=== PATIENT | female | born 1945 | race Caucasian/White ===

== ENCOUNTER 2021-11-24 14:05 | Emergency (ER) | payer MEDICARE, SELFPAY ==
[2021-11-24] VITALS (10 sets, daily range): BP systolic 112–130; BP diastolic 42–50; PULSE 63–74; RESP 15–22; TEMP 38.2; O2SAT 94–100
--- NOTE | ~2021-11-24 | XR_ITS ---
EXAMINATION: XR chest 2V DATE: 11/24/2021 16:36 INDICATION: Fever TECHNIQUE: AP and lateral views of the chest are obtained. COMPARISON: None available FINDINGS: There is mild atelectasis of the lung bases. The heart size is normal for technique. There is no pleural effusion or pneumothorax. Median sternotomy wires and mediastinal surgical clips are se en, likely from prior coronary artery bypass grafting. A dual-lead cardiac pacemaker of the left ches t wall ends with leads in expected locations. There are partially imaged surgical changes of the lumb ar spine. Neurostimulator leads end in the central spinal canal of the midthoracic spine. IMPRESSION: 1. Mild atelectasis of the lung bases. Reviewed, dictated and finalized at location B.
[2021-11-24 15:15] LABS: Hematocrit 23.3 % (37.0-47.0); Hemoglobin 7.5 g/dL (12.0-15.0); Mean Corpuscular HGB Conc 32.2 g/dl (32-36); Mean Corpuscular Hemoglobin 33.8 pg (26-34); Mean Platelet Volume 8.8 fl (7.4-10.4); Platelet Count Result 351 k/mm3 (150-375); Red Blood Count 2.22 M/mm3 (4.2-5.4); Red Cell Distribution Width 14.9 % (11.5-14.5); White Blood Count 15.5 K/mm3 (4.5-10.0)
[2021-11-24] MEDS: SODIUM CHLORIDE 0.9% IV 500 ML 999 ML IV CONT ×2 (15:15→17:22)
[2021-11-24] MEDS: HYDROmorphone HCL INJ (*CRX) 1 MG/ML SYR 0.5 MG IV PUSH (15:16)
[2021-11-24 15:35] LABS: Alanine Aminotransferase 22 U/L (4-35); Alkaline Phosphatase 119 U/L (38-126); Anion Gap 2 mmol/L (8-16); Aspartate Amino Transferase 59 U/L (14-36); Blood Urea Nitrogen 20 mg/dL (7-17); Carbon Dioxide 27 mmol/L (22-30); Chloride 96 mmol/L (98-107); Estimated CRCL calculation 38 ml/min; Estimated Glomerular Filt Rate 54; Glucose 132 mg/dL (65-110); Potassium 4.3 mmol/L (3.4-5.0); Sodium 125 mmol/L (137-145)
--- NOTE | 2021-11-24 15:45 | ED.EXTPRO ---
HPI - Extremity Problem General Chief complaint: Extremity Problem,Nontraumatic Stated complaint: b/l LE pain, recent hip replacement Source: patient, family and RN notes reviewed Mode of arrival: ambulatory Limitations: no limitations History of Present Illness HPI Narrative: 76-year-old female presenting the emergency department for evaluation of intermittent lower extremity cramping. Patient had a hip replacement in [place] by Dr. Marie. Patient did have follow-up yesterday and had her bud removed. Patient was having some left lower extremity swelling and did have a ultrasound ruling out a DVT. Patient states today that she had onset of bilateral thigh cramping that was not improved with either flexion or extension of her lower extremities. Patient states that she also had some cramping of her upper extremities. Patient did have a low-grade fever on arrival of 100.7. Related Data Home Medications Medication Instructions Recorded Confirmed acetaminophen-codeine 1 tablet PO Q6H PRN 11/24/21 11/24/21 amiodarone 200 mg PO DAILY 11/24/21 11/24/21 apixaban [Eliquis] 5 mg PO BID 11/24/21 11/24/21 atorvastatin 40 mg PO HS 11/24/21 11/24/21 baclofen 10 mg PO QID 11/24/21 11/24/21 chlorpheniramine maleate 4 mg PO Q4H 11/24/21 11/24/21 [Chlortab-4] ezetimibe 10 mg PO DAILY 11/24/21 11/24/21 gabapentin 300 mg PO BID 11/24/21 11/24/21 insulin lispro [Humalog U-100 1 sliding scale dose SUBCUT 11/24/21 11/24/21 Insulin] USEASDIRECTD isosorbide mononitrate 30 mg PO DAILY 11/24/21 11/24/21 losartan 12.5 mg PO DAILY 11/24/21 11/24/21 metoprolol succinate 12.5 mg PO DAILY 11/24/21 11/24/21 pantoprazole 40 mg PO QAM 11/24/21 11/24/21 tramadol 50 mg PO Q6H PRN 11/24/21 11/24/21 Allergies Allergy/AdvReac Type Severity Reaction Status Date / Time hydrocodone Allergy Itching Verified 11/24/21 15:09 oxycodone Allergy Itching Verified 11/24/21 15:09 Review of Systems Review of Systems: CONSTITUTIONAL: Denies fever, chills, or sweats. EYES: Denies visual changes, redness, or discharge. ENT: Denies rhinorrhea, congestion, sore throat, or otalgia. CARDIOVASCULAR: Denies chest pain, palpitations, or edema. RESPIRATORY: Denies cough or dyspnea. GASTROINTESTINAL: Denies abdominal pain, nausea, vomiting, or diarrhea. GENITOURINARY: Denies dysuria or hematuria. SKIN: Denies rash or itching. MUSCULOSKELETAL: See HPI NEUROLOGIC: Denies headache, numbness, or weakness. All systems reviewed & are unremarkable except as noted in HPI and below Exam Narrative: APPEARANCE: Well appearing, no pain, no distress, well-nourished. HEAD: normocephalic, atraumatic. EYES: PERRLA/EOMI, conjunctivae clear. NOSE: Normal no drainage NECK: Supple. No adenopathy, no masses. RESPIRATORY: Airway patent, respirations nonlabored. Clear to auscultation bilaterally, no rales, rhonchi, wheezing. CARDIOVASCULAR: Regular rate and rhythm without murmurs rubs or gallops. ABDOMINAL: Soft, nontender, nondistended, normal bowel sounds MUSCULOSKELETAL: Moves all extremities. Left hip surgical incision is well-appearing. No erythema. Minimal tenderness to palpation. NEURO: Alert. Cranial nerves II through XII intact. Grossly intact SKIN: Warm, dry. Normal Color Course Course Emergency Course: Patient was offered admission for her low sodium but patient did decline. Patient states she does feel improved. Patient does have a leukocytosis but no sign of infection. Surgical incision is well-appearing and patient has no increased tenderness to palpation. Chest x-ray showed no acute cardiopulmonary normality. COVID was negative. Patient reports she has had issues with low calcium previously and had previously been prescribed calcium tablets. Patient is no longer taking these. Patient was encouraged to have close follow-up with her primary care physician to have her sodium and calcium rechecked. Patient was able to ambulate without issue. Vital Signs Vital signs:
[2021-11-24 15:59] LABS: SARS-CoV-2 RNA PCR Negative
[2021-11-24] MEDS: CALCIUM GLUC 1,000 MG/NS 50 ML 1,000 MG/50 ML BAG 100 MG IVPB (16:03)
[2021-11-24 16:05] LABS: Lymphocytes Absolute Manual 0.15 K/mm3 (1.1-4.5); Monocytes Absolute Manual 0.31 K/mm3 (0.1-0.90); Monocytes Percent Manual 2 % (3-9); Neutrophils Percent Manual 97 % (46-73); Total Cells Counted 100
[2021-11-24 16:06] LABS: Anisocytosis 1+ (NORMAL); Platelet Estimate Adequate (Adequate); Poikilocytosis 1+ (NORMAL); Schistocytes 1+ (NORMAL)
--- NOTE | 2021-11-24 16:51 | PC.NURSE ---
pT TO BATHROOM BY ERASTO MCCARTHY TO ATTEMPT URINE SAMPLE
[2021-11-24 17:07] LABS: Appearance Urine Clear (Clear); Bilirubin Urine Negative (Negative); Blood Urine Negative (Negative); Color Urine Yellow (Yellow); Glucose Urine UA Negative (Negative); Ketones Urine Negative (Negative); Leukocyte Esterase Ur Negative LEU/UL (Negative); Nitrate Urine Negative (Negative); Protein Urine Negative (Negative)
[2021-11-24 17:21] LABS: Add Urine Microscopic? NO
[2021-11-24 18:56] LABS: Anion Gap 3 mmol/L (8-16); Blood Urea Nitrogen 18 mg/dL (7-17); Calcium 7.8 mg/dL (8.4-10.2); Carbon Dioxide 26 mmol/L (22-30); Chloride 97 mmol/L (98-107); Estimated CRCL calculation 38 ml/min; Estimated Glomerular Filt Rate 54; Glucose 132 mg/dL (65-110); Potassium 4.1 mmol/L (3.4-5.0); Sodium 126 mmol/L (137-145)
== END 2021-11-24 19:51 | disposition home or self-care (01) ==
PROVIDERS: Emergency Provider Emergency Medicine
DX: R25.2 Cramp and spasm (principal); Z20.822 Contact with and (suspected) exposure to COVID-19; Z79.01 Long term (current) use of anticoagulants; Z79.4 Long term (current) use of insulin; Z96.642 Presence of left artificial hip joint
CPT/HCPCS: 36415; 71046; 80048; 80053; 81003; 83605; 85025; 96361; 96365; 96367; 96375; 99284; C9803; J0131; J0610; J1170; J7040; U0003; U0005

== ENCOUNTER 2021-11-26 08:49 | Inpatient (IN) | payer MEDICARE, SELFPAY ==
--- NOTE | ~2021-11-26 | CT_ITS ---
EXAMINATION: CT abdomen pelvis wo con DATE: 11/26/2021 10:56 INDICATION: Abdominal pain TECHNIQUE: Computed tomography (CT) of the abdomen and pelvis was performed without intravenous contr ast. The dose-length product (DLP) was 426.63 mGy-cm. Automated exposure control and iterative recons truction technique were employed. COMPARISON: None FINDINGS: Minimal dependent atelectasis is present in the lung bases. The heart size is normal. There is diffuse anasarca. The gallbladder is surgically absent. Within the limitations of noncontrast exa mination, the liver, spleen, pancreas, and adrenal glands are normal. Streak artifact from lumbar fus ion hardware limits evaluation of the kidneys although no parenchymal abnormality of the kidneys is s een. There is calcified atherosclerosis of the aorta and many of the other arteries. No pathologicall y enlarged abdominal or pelvic lymph nodes are identified. A moderate volume of colonic stool is pres ent. There is no free intraperitoneal gas or evidence of bowel obstruction. There are changes of left hip arthroplasty. There is a small volume of pelvic ascites. IMPRESSION: 1. Moderate volume of colonic stool. Reviewed, dictated and finalized at location A.
--- NOTE | ~2021-11-26 | US_ITS ---
EXAMINATION: US venous doppler LE DATE: 12/02/2021 14:22 INDICATION: LE edema. Recent left hip surgery. TECHNIQUE: Grayscale images without and with compression and Doppler images of the bilateral lower ex tremity veins were obtained. COMPARISON: None. FINDINGS: The right common femoral vein, profunda (deep) femoral vein, femoral vein, popliteal vein, peroneal v ein, posterior tibial veins, gastrocnemius vein and greater saphenous vein are patent. The left common femoral vein, profunda femoral vein, femoral vein, popliteal vein, peroneal vein, pos terior tibial veins, gastrocnemius vein and greater saphenous vein are patent. IMPRESSION: 1. Patent bilateral lower extremity veins. No evidence of deep venous thrombosis. Reviewed, dictated and finalized at location K. IMPRESSION: 1. Patent bilateral lower extremity veins. No evidence of deep venous thrombos is.
--- NOTE | ~2021-11-26 | US_ITS ---
EXAMINATION: US abdomen complete DATE: 12/03/2021 14:06 INDICATION: Abdominal fullness. TECHNIQUE: Multiple grayscale and Doppler ultrasound images of the abdomen were obtained. COMPARISON: CT abdomen and pelvis 11/26/2021. FINDINGS: Visualized portions of the pancreas are normal. The liver is normal with normal echogenicit y and echotexture. No surface nodularity. Normal hepatopetal flow in the main portal vein. Absent gal lbladder. The normal common bile duct measures 0.3 cm. The visualized portions of the aorta and infer ior vena cava are normal. The right kidney measures 8.6. The left kidney measures 9.7. The kidneys demonstrate normal parenchym al echogenicity. There is no hydronephrosis. The spleen is normal in appearance and measures 7 cm. IMPRESSION: 1. Status post cholecystectomy, otherwise normal abdominal ultrasound findings. Reviewed, dictated and finalized at location K.
[2021-11-26 08:55] VITALS: BP 129/42; PULSE 70; RESP 18; TEMP 36.8; O2SAT 98
--- NOTE | 2021-11-26 09:13 | ED.NAVMDI ---
HPI - Nausea/Vomiting/Diarrhea General Chief complaint: Nausea/Vomiting/Diarrhea Stated complaint: nausea diarrhea, repeat visit Time Seen by Provider: 11/26/21 09:01 Source: patient Mode of arrival: ambulatory Limitations: no limitations History of Present Illness HPI Narrative: 76 year old female presents today with complaints of diarrhea, n, v for 2 days. Patient seen here 11/24/2021 for muscle cramps. On that visit it was noted she had a fever and low sodium. Betty was offered admission but declined at that time due to her feeling better. Patient states she went home that night and that is when the diarrhea started. She also endorses lower abdominal pain/cramping. Patient with recent hip surgery as previously noted. Per family she was on abx after her procedure. He thinks amoxicillin but is unsure. Related Data Home Medications Medication Instructions Recorded Confirmed acetaminophen-codeine 1 tablet PO Q6H PRN 11/24/21 11/24/21 amiodarone 200 mg PO DAILY 11/24/21 11/24/21 apixaban [Eliquis] 5 mg PO BID 11/24/21 11/24/21 atorvastatin 40 mg PO HS 11/24/21 11/24/21 baclofen 10 mg PO QID 11/24/21 11/24/21 chlorpheniramine maleate 4 mg PO Q4H 11/24/21 11/24/21 [Chlortab-4] ezetimibe 10 mg PO DAILY 11/24/21 11/24/21 gabapentin 300 mg PO BID 11/24/21 11/24/21 insulin lispro [Humalog U-100 1 sliding scale dose SUBCUT 11/24/21 11/24/21 Insulin] USEASDIRECTD isosorbide mononitrate 30 mg PO DAILY 11/24/21 11/24/21 losartan 12.5 mg PO DAILY 11/24/21 11/24/21 metoprolol succinate 12.5 mg PO DAILY 11/24/21 11/24/21 pantoprazole 40 mg PO QAM 11/24/21 11/24/21 tramadol 50 mg PO Q6H PRN 11/24/21 11/24/21 Allergies Allergy/AdvReac Type Severity Reaction Status Date / Time hydrocodone Allergy Itching Verified 11/26/21 09:05 oxycodone Allergy Itching Verified 11/26/21 09:05 Review of Systems Review of Systems: CONSTITUTIONAL: Denies fever, chills, or sweats. EYES: Denies visual changes, redness, or discharge. ENT: Denies rhinorrhea, congestion, sore throat, or otalgia. CARDIOVASCULAR: Denies chest pain, palpitations, or edema. RESPIRATORY: Denies cough or dyspnea. GASTROINTESTINAL: Positive abdominal pain, nausea, vomiting, and diarrhea. GENITOURINARY: Denies dysuria or hematuria. SKIN: Denies rash or itching. MUSCULOSKELETAL: Denies back pain, joint pain, or myalgia. NEUROLOGIC: Denies headache, numbness, dizziness, or weakness. PSYCHIATRIC: Denies anxiety or depression. [facility] Past Medical History Medical History (Updated 11/26/21 @ 14:24 by Ivory Priest APRN) Atrial fibrillation Diabetes mellitus Dyslipidemia Hypertension Surgical History Surgical History History of total left hip replacement Social History Social History Smoking status: Never smoker Exam Narrative: GENERAL: Ill-appearing and in no acute distress. HEAD: Normocephalic, atraumatic. EYES: PERRLA and EOMI. ENT: Nares clear, no rhinorrhea or epistaxis. Mucous membranes moist. Oropharynx without tonsillar hypertrophy exudate or other lesions. NECK: Supple. No adenopathy or masses. No carotid bruits or JVD CHEST: Clear to auscultation. No respiratory distress. No wheezes rales or rhonchi HEART: Regular rate and rhythm. No murmur heard. Normal peripheral pulses. ABDOMEN: Soft, tender, nondistended, normal active bowel sounds. EXTREMITIES: Normal range of motion. No edema. SKIN: Warm, dry, no rash. NEURO: No focal deficits. Alert and oriented x3. PSYCH: Normal mood and affect. Course Reevaluation(s) Reevaluation #1: Patient refused scan with IV . Ct changed to plain. She is with continued nausea despite medication and IVF. Sodium 120, WBC 14.7, hemoglobin 7.4, CT shows moderate amount of stool but no obstruction. Case discussed with hospitalist patient to be admitted for further management. Just after admission order
[2021-11-26 09:27] LABS: Basophils Percent Auto 0.3 % (0.2-1.2); Eosinophils Percent Auto 0.1 % (0-4.4); Hematocrit 23.1 % (37.0-47.0); Hemoglobin 7.4 g/dL (12.0-15.0); Immature Granulocyte Absolute 0.17 K/mm3 (0.00-0.031); Immature Granulocyte Percent A 1.2 % (0-0.5); Lymphocytes Absolute Auto 0.61 K/mm3 (0.9-3.2); Lymphocytes Percent Auto 4.2 % (18.3-44.2); Mean Corpuscular Hemoglobin 33.6 pg (26-34); Mean Platelet Volume 9.3 fl (7.4-10.4); Monocytes Absolute Auto 1.1 K/mm3 (0.1-0.6); Monocytes Percent Auto 7.3 % (2.6-8.5); Neutrophils Absolute Auto 12.8 K/mm3 (1.3-6.7); Neutrophils Percent Auto 86.9 % (45.5-73.1); Platelet Count Result 345 k/mm3 (150-375); Red Cell Distribution Width 14.6 % (11.5-14.5); White Blood Count 14.7 K/mm3 (4.5-10.0)
[2021-11-26] MEDS: SODIUM CHLORIDE 0.9% IV 1,000 ML 999 ML IV CONT (09:27)
[2021-11-26] MEDS: METOCLOPRAMIDE HCL INJ 10 MG/2 ML VIAL IV PUSH (09:28)
[2021-11-26 09:46] LABS: Alanine Aminotransferase 20 U/L (6-35); Albumin Level 2.8 g/dL (3.5-5.1); Alkaline Phosphatase 112 U/L (38-126); Anion Gap 6 mmol/L (8-16); Aspartate Amino Transferase 38 U/L (14-36); Bilirubin,Total 1.1 mg/dL (0.2-1.3); Blood Urea Nitrogen 28 mg/dL (7-17); Calcium 7.6 mg/dL (8.4-10.2); Carbon Dioxide 22 mmol/L (22-30); Chloride 92 mmol/L (98-107); Crenated RBC 1+ (NORMAL); Estimated CRCL calculation 37 ml/min; Estimated Glomerular Filt Rate 54; Glucose 292 mg/dL (65-110); Platelet Estimate Adequate (Adequate); Potassium 4.3 mmol/L (3.4-5.0); Sodium 120 mmol/L (137-145)
[2021-11-26 11:53] LABS: Toxigenic C. Diff POSITIVE (NEGATIVE)
[2021-11-26] MEDS: ONDANSETRON INJ 4 MG/2 ML VIAL IV PUSH ×2 (12:05→21:46)
[2021-11-26 12:10] VITALS: BP 142/56; PULSE 72; RESP 18; O2SAT 100
[2021-11-26 12:46] VITALS: BP 147/62; PULSE 87; RESP 16; O2SAT 100
--- NOTE | 2021-11-26 13:11 | PM.CNNEP ---
Assessment and Plan Assessment and plan (1) Hyponatremia: Code(s): E87.1 - Hypo-osmolality and hyponatremia Status: Acute Assessment and Plan: presumably acute suspect due to volume depletion given GI symptoms (nausea/vomiting/diarrhea) however, issues with pain, use of narcotics, and use of PPI may be playing a role check TSH, cortisol, SPEP, UPEP, and serum/urine osmolality check urine electrolytes trial of IVFs serial sodium levels goal rate of change in sodium is 4 - 6mmol/L in 24hr period of time (and not exceed 8mmol/L) (2) Clostridium difficile infection: Code(s): A49.8 - Other bacterial infections of unspecified site Status: Acute Assessment and Plan: as noted by testing in ER to start oral vancomycin consider adding florastor (3) Hypertension: Code(s): I10 - Essential (primary) hypertension Status: Chronic Assessment and Plan: reasonable control at this time follow trend of hemodynamics (4) Diabetes mellitus: Code(s): E11.9 - Type 2 diabetes mellitus without complications Status: Acute Assessment and Plan: follow accuchecks glycemic control Will continue to follow. History of Present Illness Reason for Consult Consult date: 11/26/21 Reason for consult: hyponatremia Chief Complaint Chief complaint: hyponatremia History of Present Illness Narrative: The patient is a 76-year-old female with a past medical history as outlined below who presented to [facility] Emergency room with complaints of nausea, vomiting, and diarrhea. The patient was in her usual state of health until about Saturday when she started having the GI symptoms above. She was actually seen at [facility] emergency room on that day where routine blood test demonstrated evidence of hyponatremia. She was offered admission at that time but declined since she felt better with IV antiemetics and supportive therapy. She subsequently went home but has been having ongoing diarrhea since that time. She admits only minimal vomiting but with significant nausea. No reported fevers, chills, chest pain, abdominal pain, or shortness of breath. Workup and evaluation emergency room demonstrated the patient to be hemodynamically stable and routine blood test demonstrated her hyponatremia once again but this time it was worse than what it was 2 days ago. On Saturday, her sodium level was around 125 and her repeat sodium level today in the emergency room was 120 millimoles per L. She does report that she was on antibiotics after recent left total hip replacement surgery. Further testing in the emergency room demonstrated the patient to be positive for C difficile colitis. Given her hyponatremia and constellation of symptoms that led to her presentation to the emergency room, she was admitted to the hospital for further evaluation and therapy. Renal consultation was requested due to her hyponatremia. As far as the patient is aware she has never been told that she had hyponatremia in the past but I have no previous labs to compare to since she has not had any blood test done in the [facility] other than 2 days ago when she was evaluated in the ER at that time. From review of her medications, the only medicines that could be possibly related to her low sodium levels that that of proton pump inhibitor (Protonix) and pain medications (Tylenol No. 3). Her repeat sodium after 1 L of normal saline in the emergency room was up to 121 millimoles per L from 120. Currently, the patient's major symptoms/complaint is that of the diarrhea. Review of Systems Review of Systems: As per HPI. [facility] Past Medical History Medical History (Updated 11/26/21 @ 16:20 by Ulises Henderson MD) Atrial fibrillation Diabetes mellitus Dyslipidemia Hypertension Surgical History Surgical History History of total left
--- NOTE | 2021-11-26 13:18 | PM.IMHP ---
H&P: HPI History of Present Illness Date/Time: Patient was placed observation status for expected length of stay less than 23 hours for management, will plan to re-evaluate tomorrow for improvement. 11/26/21 13:18 Chief Complaint: Diarrhea with nausea Narrative: Ms. Rowan is a 76-year-old female who presented to the emergency room with complaints of nausea with minimal vomiting and diarrhea that started on Saturday. Patient states she did have left total hip replacement performed on 11/08 by in [place], [place]. Patient states she had been doing well until 11/24/2021. Patient states that she was seen in the emergency room and was told that her sodium was low and was offered admission, but she declined. Patient states that she went home and then started having diarrhea. Patient states she has been nauseated and had minimal vomiting. Patient states she more spits up then vomits. Patient denies any fever or chills. Patient denies any chest pain, shortness breast, lightheadedness, dizziness, syncopal, or near syncopal episodes. Patient states that she was on antibiotics 3 days after having her left total hip replacement. Upon evaluation in emergency room patient was noted to have worsening hyponatremia and had diarrhea. Patient did come back positive for C difficile. Patient has a known history of atrial fibrillation, dyslipidemia, diabetes mellitus, and hypertension. Review of Systems Review of Systems: A 12 point review of systems was completed patient all pertinent positive and negative per HPI the remainder are unremarkable. COUNT INCLUDES THE [facility] Past Medical History Medical History (Updated 11/26/21 @ 14:24 by Ivory Priest APRN) Atrial fibrillation Diabetes mellitus Dyslipidemia Hypertension Surgical History Surgical History (Updated 11/26/21 @ 14:02 by Yanet Spencer APRN) History of total left hip replacement Social History Social History (Updated 11/26/21 @ 14:02 by Yanet Spencer APRN) Smoking status: Never smoker Meds Home Medications and Allergies Home Medications Medication Instructions Recorded Confirmed Type acetaminophen-codeine 1 tablet PO Q6H PRN 11/24/21 11/24/21 History amiodarone 200 mg PO DAILY 11/24/21 11/24/21 History apixaban [Eliquis] 5 mg PO BID 11/24/21 11/24/21 History atorvastatin 40 mg PO HS 11/24/21 11/24/21 History baclofen 10 mg PO QID 11/24/21 11/24/21 History chlorpheniramine maleate 4 mg PO Q4H 11/24/21 11/24/21 History [Chlortab-4] ezetimibe 10 mg PO DAILY 11/24/21 11/24/21 History gabapentin 300 mg PO BID 11/24/21 11/24/21 History insulin lispro [Humalog U-100 1 sliding scale dose SUBCUT 11/24/21 11/24/21 History Insulin] USEASDIRECTD isosorbide mononitrate 30 mg PO DAILY 11/24/21 11/24/21 History losartan 12.5 mg PO DAILY 11/24/21 11/24/21 History metoprolol succinate 12.5 mg PO DAILY 11/24/21 11/24/21 History pantoprazole 40 mg PO QAM 11/24/21 11/24/21 History tramadol 50 mg PO Q6H PRN 11/24/21 11/24/21 History Allergies Allergy/AdvReac Type Severity Reaction Status Date / Time hydrocodone Allergy Itching Verified 11/26/21 09:05 oxycodone Allergy Itching Verified 11/26/21 09:05 Vital Signs Vital Signs - 24 hr 11/26/21 08:55 11/26/21 12:10 11/26/21 12:46 Temperature 36.8 C Pulse Rate 70 72 87 Respiratory Rate 18 18 16 Blood Pressure 129/42 L 142/56 H 147/62 H Pulse Oximetry 98 100 100 Exam Narrative: Constitutional: Patient is well-nourished in no acute distress. Patient is alert and oriented x3 HEENT: Moist mucous membranes. No scleral icterus. No lymphadenopathy. Neck: No carotid bruits noted no JVD noted Lungs: Lung sounds are clear to auscultation bilaterally. No accessory muscle use. No rhonchi, rales, or wheezes noted. Cardiovascular: Apical pulse is regular rate and rhythm. S1-S2 noted, no S3 or S4 noted. No gallops, murmurs, or rubs noted. Abdomen: Soft and round. Patient complains of tenderness to her entire
[2021-11-26 13:20] LABS: Appearance Urine Slightly Cloudy (Clear); Bilirubin Urine Negative (Negative); Blood Urine Trace-lysed (Negative); Color Urine Yellow (Yellow); Glucose Urine UA 3+ mg/dL (Negative); Ketones Urine 2+ mg/dL (Negative); Leukocyte Esterase Ur Negative LEU/UL (Negative); Nitrate Urine Negative (Negative); Protein Urine Negative (Negative); Urobilinogen Urine 0.2 mg/dL (<2.0); pH Urine 5.5 (5.0-9.0)
[2021-11-26 13:25] LABS: Mucus Urine Rare /lpf; RBC Urine 0-2 /hpf (0-2); Squamous Epithelial Cell Urine Rare /hpf (Few)
[2021-11-26 13:27] LABS: Add Urine Microscopic? YES
[2021-11-26 13:28] LABS: Sodium 121 mmol/L (137-145)
[2021-11-26 13:40] LABS: Creatinine Urine 96.8 mg/dL; Sodium Urine Random 12 meq/L; Total Protein Urine Random 26 mg/dL; Ur Ttl Prot Creatinine Ratio 0.27 mg/mg (0-0.20)
[2021-11-26] MEDS: SODIUM CHLORIDE 0.9% IV 1,000 ML 75 ML IV CONT (14:36)
[2021-11-26] MEDS: VANCOMYCIN ORAL 125 MG/2.5 ML SYRUP PO ×3 (14:36→23:34)
[2021-11-26 14:41] VITALS: BMI 20.5
--- NOTE | 2021-11-26 14:46 | PC.NURSE ---
This patient, Jil Rowan, was admitted to [facility] S[facility] Room 304-01. Patient/family oriented to hospital policies and general routines including ID bracelet, bed and alarms, visiting hours, pain management, procedures, bathroom and other care routines, personal items, smoking policy, room service/diet, and visiting hours. Information on how to activate the Rapid Response Team has been discussed. Patient/Family are encouraged to report perceived risks to care and to ask questions if they do not understand what they are told or what they should do.
[2021-11-26 16:00] VITALS: PULSE 69
[2021-11-26 16:26] LABS: Glucose Point of Care 358 mg/dl (65-105)
[2021-11-26 17:04] LABS: Sodium 120 mmol/L (137-145)
[2021-11-26] MEDS: INSULIN ASPART (*BKC) 100 UNITS/ML SUB-Q (17:23)
[2021-11-26 20:00] VITALS: PULSE 62
[2021-11-26 21:22] LABS: Sodium 121 mmol/L (137-145)
[2021-11-26 21:53] LABS: Glucose Point of Care 270 mg/dl (65-105)
[2021-11-26 22:00] VITALS: BP 139/56; PULSE 62; RESP 16; TEMP 37.3; O2SAT 93
[2021-11-27] VITALS (12 sets, daily range): BP systolic 118–158; BP diastolic 42–60; PULSE 61–71; RESP 16–18; TEMP 36.9–37.5; O2SAT 93–98; BMI 20.5
[2021-11-27] MEDS: ONDANSETRON INJ 4 MG/2 ML VIAL IV PUSH ×3 (04:54→22:09)
[2021-11-27] MEDS: SODIUM CHLORIDE 0.9% IV 1,000 ML 75 ML IV CONT (04:54)
[2021-11-27] MEDS: VANCOMYCIN ORAL 125 MG/2.5 ML SYRUP PO ×3 (04:54→18:08)
[2021-11-27 07:28] LABS: Basophils Percent Auto 0.2 % (0.2-1.2); Eosinophils Absolute Auto 0.1 K/mm3 (0-0.3); Eosinophils Percent Auto 0.3 % (0-4.4); Hematocrit 21.6 % (37.0-47.0); Hemoglobin 7.2 g/dL (12.0-15.0); Immature Granulocyte Absolute 0.08 K/mm3 (0.00-0.031); Immature Granulocyte Percent A 0.5 % (0-0.5); Lymphocytes Absolute Auto 0.79 K/mm3 (0.9-3.2); Lymphocytes Percent Auto 5.4 % (18.3-44.2); Mean Corpuscular HGB Conc 33.3 g/dl (32-36); Mean Corpuscular Hemoglobin 33.6 pg (26-34); Mean Corpuscular Volume 100.9 fl (80-100); Mean Platelet Volume 9.2 fl (7.4-10.4); Monocytes Absolute Auto 1.2 K/mm3 (0.1-0.6); Monocytes Percent Auto 7.9 % (2.6-8.5); Neutrophils Absolute Auto 12.5 K/mm3 (1.3-6.7); Neutrophils Percent Auto 85.7 % (45.5-73.1); Platelet Count Result 373 k/mm3 (150-375); Red Blood Count 2.14 M/mm3 (4.2-5.4); White Blood Count 14.6 K/mm3 (4.5-10.0)
[2021-11-27 07:38] LABS: Alanine Aminotransferase 23 U/L (6-35); Albumin Level 2.3 g/dL (3.5-5.1); Alkaline Phosphatase 150 U/L (38-126); Anion Gap 5 mmol/L (8-16); Aspartate Amino Transferase 39 U/L (14-36); Bilirubin,Total 0.9 mg/dL (0.2-1.3); Blood Urea Nitrogen 27 mg/dL (7-17); Calcium 7.5 mg/dL (8.4-10.2); Carbon Dioxide 21 mmol/L (22-30); Chloride 95 mmol/L (98-107); Estimated CRCL calculation 37 ml/min; Estimated Glomerular Filt Rate 54; Glucose 276 mg/dL (65-110); Magnesium 1.8 mg/dL (1.6-2.3); Potassium 4.2 mmol/L (3.4-5.0); Sodium 121 mmol/L (137-145)
[2021-11-27 08:15] LABS: Glucose Point of Care 292 mg/dl (65-105)
[2021-11-27] MEDS: APIXABAN 5 MG TABLET PO ×2 (08:51→22:03)
[2021-11-27] MEDS: SODIUM CHLORIDE 1 GM TABLET PO ×2 (08:51→18:08)
[2021-11-27] MEDS: ISOSORBIDE MONONITRATE 30 MG TAB.ER.24H PO (08:52)
[2021-11-27] MEDS: AMIODARONE HCL 200 MG TABLET PO (08:52)
[2021-11-27] MEDS: LOSARTAN POTASSIUM 12.5 MG TABLET PO (08:52)
[2021-11-27] MEDS: PANTOPRAZOLE 40 MG TABLET PO (08:52)
[2021-11-27] MEDS: INSULIN ASPART (*BKC) 100 UNITS/ML SUB-Q ×3 (08:52→22:12)
[2021-11-27] MEDS: BACLOFEN 10 MG TABLET PO ×2 (08:52→18:08)
[2021-11-27] MEDS: GABAPENTIN 300 MG CAPSULE PO (08:52)
[2021-11-27] MEDS: METOPROLOL SUCCINATE EXT REL 12.5 MG TABCR PO (08:52)
[2021-11-27] MEDS: EZETIMIBE 10 MG TABLET PO (08:52)
[2021-11-27 12:12] LABS: Glucose Point of Care 278 mg/dl (65-105)
--- NOTE | 2021-11-27 12:30 | P.PNIM_ITS ---
Progress Note: A&P Assessment and Plan (1) Clostridium difficile infection: Code(s): A49.8 - Other bacterial infections of unspecified site Status: Acute Assessment and Plan: * Report diarrhea since the 6th * Recent antibiotics with hip replacement * C. Diff came back positive * Vancomycin 125mg PO Q6HR started day 1 * Trend output * Trend electrolytes * Watch for dehydration (2) Hyponatremia: Code(s): E87.1 - Hypo-osmolality and hyponatremia Status: Acute Assessment and Plan: * Current Na 121 * Seems to have been low on 11/24/21 * Trend labs * Nephro consult thank you * IV fluids on board * Urine sodium 12, Urine creatinine is 96.8 * Urine studies pending * Corrected Na 124-125, since glucose is 276 * Could be related to dehydration from excessive diarrhea (3) Diabetes mellitus: Code(s): E11.9 - Type 2 diabetes mellitus without complications Status: Acute Assessment and Plan: * Current glucose is 276 * Accu cheks achs * Current use of insulin pump * ISS * U-100 at home * Check A1c * Adjust therapy as indicated (4) Hypertension: Code(s): I10 - Essential (primary) hypertension Status: Chronic Assessment and Plan: * Current BP 139/56 * Continue home Imdur 30mg PO daily, Losartan 12.5mg PO daily, Metoprolol 12.5mg PO daily * Trend blood pressure * Adjust therapy as indicated (5) Afib: Code(s): I48.91 - Unspecified atrial fibrillation Status: Acute Assessment and Plan: * Hx of a. fib * Continue amiodarone 200mg PO daily, Eliquis, and metoprolol 12.5mg PO daily * Tele monitor * Rate seems controlled Time Spent With Patient Time with patient: Greater than 35 minutes Subjective Date/time seen: 11/27/21 07:50 Interval history: 11/26/21 13:18 Narrative: Ms. Rowan is a 76-year-old female who presented to the emergency room with complaints of nausea with minimal vomiting and diarrhea that started on Saturday. Patient states she did have left total hip replacement performed on 11/08 by in [place], [place]. Patient states she had been doing well until 11/24/2021. Patient states that she was seen in the emergency room and was told that her sodium was low and was offered admission, but she declined. Patient states that she went home and then started having diarrhea. Patient states she has been nauseated and had minimal vomiting. Patient states she more spits up then vomits. Patient denies any fever or chills. Patient denies any chest pain, shortness breast, lightheadedness, dizziness, syncopal, or near syncopal episodes. Patient states that she was on antibiotics 3 days after having her left total hip replacement. Upon evaluation in emergency room patient was noted to have worsening hyponatremia and had diarrhea. Patient did come back positive for C difficile. Patient has a known history of atrial fibrillation, dyslipidemia, diabetes mellitus, and hypertension. 11/27/21 1230 Patient stated that she was doing very well today. She stated that she has no control over her bowel, continue was cramping, nausea, diarrhea, and incontin ence. Patient stated that she has had about 6 bouts of diarrhea throughout the day and stated that it could be more however she does not know when she is always going. Patient also stated that she feels like her legs are swelling and was concerned about DVTs and would like sequentials. Patient denies any chest pain,
--- NOTE | 2021-11-27 12:30 | PM.IMPN ---
Progress Note: A&P Assessment and Plan (1) Clostridium difficile infection: Code(s): A49.8 - Other bacterial infections of unspecified site Status: Acute Assessment and Plan: Report diarrhea since the 6th Recent antibiotics with hip replacement C. Diff came back positive Vancomycin 125mg PO Q6HR started day 1 Trend output Trend electrolytes Watch for dehydration (2) Hyponatremia: Code(s): E87.1 - Hypo-osmolality and hyponatremia Status: Acute Assessment and Plan: Current Na 121 Seems to have been low on 11/24/21 Trend labs Nephro consult thank you IV fluids on board Urine sodium 12, Urine creatinine is 96.8 Urine studies pending Corrected Na 124-125, since glucose is 276 Could be related to dehydration from excessive diarrhea (3) Diabetes mellitus: Code(s): E11.9 - Type 2 diabetes mellitus without complications Status: Acute Assessment and Plan: Current glucose is 276 Accu cheks achs Current use of insulin pump ISS U-100 at home Check A1c Adjust therapy as indicated (4) Hypertension: Code(s): I10 - Essential (primary) hypertension Status: Chronic Assessment and Plan: Current BP 139/56 Continue home Imdur 30mg PO daily, Losartan 12.5mg PO daily, Metoprolol 12.5mg PO daily Trend blood pressure Adjust therapy as indicated (5) Afib: Code(s): I48.91 - Unspecified atrial fibrillation Status: Acute Assessment and Plan: Hx of a. fib Continue amiodarone 200mg PO daily, Eliquis, and metoprolol 12.5mg PO daily Tele monitor Rate seems controlled Time Spent With Patient Time with patient: Greater than 35 minutes Subjective Date/time seen: 11/27/21 07:50 Interval history: 11/26/21 13:18 Narrative: Ms. Rowan is a 76-year-old female who presented to the emergency room with complaints of nausea with minimal vomiting and diarrhea that started on Saturday. Patient states she did have left total hip replacement performed on 11/08 by in [place], [place]. Patient states she had been doing well until 11/24/2021. Patient states that she was seen in the emergency room and was told that her sodium was low and was offered admission, but she declined. Patient states that she went home and then started having diarrhea. Patient states she has been nauseated and had minimal vomiting. Patient states she more spits up then vomits. Patient denies any fever or chills. Patient denies any chest pain, shortness breast, lightheadedness, dizziness, syncopal, or near syncopal episodes. Patient states that she was on antibiotics 3 days after having her left total hip replacement. Upon evaluation in emergency room patient was noted to have worsening hyponatremia and had diarrhea. Patient did come back positive for C difficile. Patient has a known history of atrial fibrillation, dyslipidemia, diabetes mellitus, and hypertension. 11/27/21 1230 Patient stated that she was doing very well today. She stated that she has no control over her bowel, continue was cramping, nausea, diarrhea, and incontinence. Patient stated that she has had about 6 bouts of diarrhea throughout the day and stated that it could be more however she does not know when she is always going. Patient also stated that she feels like her legs are swelling and was concerned about DVTs and would like sequentials. Patient denies any chest pain, shortness of breath, nausea, constipation. Review of Systems Review of Systems: All systems reviewed & are unremarkable except as noted in HPI and below Exam Const: General: cooperative, well developed, alert, awake, acute distress, anxious, ill appearing and tired appearing Nutritional Appearance: well nourished Orientation/consciousness: oriented to person, oriented to place, oriented to time and patient oriented x3 Limitations: no limitations HENMT: Head
[2021-11-27 12:43] LABS: Free T4 Free Thyroxine Reflex 1.47 ng/dL (0.78-2.19)
--- NOTE | 2021-11-27 12:58 | PM.PNNEP ---
Progress Note: A&P Assessment and Plan (1) Hyponatremia: Code(s): E87.1 - Hypo-osmolality and hyponatremia Status: Acute Assessment and Plan: presumably acute suspect due to volume depletion given GI symptoms (nausea/vomiting/diarrhea) however, issues with pain, use of narcotics, and use of PPI may be playing a role evaluation to date: TSH elevated but free T4 okay cortisol okay SPEP/UPEP/serum + urine osmolality pending recent urine electrolytes suggest pre-renal azotemia normal saline IVFs did not really improve sodium level started on salt tablets today follow serial sodium levels goal rate of change in sodium is 4 - 6mmol/L in 24hr period of time (and not exceed 8mmol/L) (2) Clostridium difficile infection: Code(s): A49.8 - Other bacterial infections of unspecified site Status: Acute Assessment and Plan: as noted by testing in ER on oral vancomycin consider adding florastor (3) Hypertension: Code(s): I10 - Essential (primary) hypertension Status: Chronic Assessment and Plan: reasonable control at this time follow trend of hemodynamics (4) Diabetes mellitus: Code(s): E11.9 - Type 2 diabetes mellitus without complications Status: Acute Assessment and Plan: follow accuchecks glycemic control Will continue to follow. Subjective Date/time seen: 11/27/21 12:58 Seems to be doing better today on my visit; still with ongoing issues with diarrhea to the point that she is unable to control her bowels; still has on/off cramping as well; no other acute complaints voiced; no improvement in sodium with IVFs (normal saline) so switched to salt tablets today. Exam Narrative: General: WD/WN female in NAD Heart: normal S1 and S2; no rub Lungs: clear to auscultation Abdomen: soft, nontender, nondistended, positive bowel sounds Extremities: no cyanosis or clubbing; no edema Skin: warm and dry Objective Data Vital Signs Vital Signs: Vital Signs Temp Pulse Resp BP Pulse Ox 11/27/21 09:00 36.9 C 71 16 127/42 L 95 11/27/21 08:00 71 16 95 11/27/21 04:00 61 11/27/21 01:28 93 11/27/21 00:00 69 11/26/21 22:00 37.3 C 62 16 139/56 L 93 11/26/21 20:00 62 Intake/Output Intake/Output: Intake & Output 11/24/21 11/25/21 11/26/21 11/27/21 23:59 23:59 23:59 23:59 Intake Total 1240 1720 Balance 1240 1720 Meds/Results Medications: Active Medications Generic Name Dose Route Start Last Admin Trade Name Freq PRN Reason Stop Dose Admin Acetaminophen/Codeine Phosphate 1 tab 11/26/21 23:05 Acetaminophen/Codeine (*Crx) 300/30 Mg Tablet PO Q6H PRN Pain Rated 4-6 Amiodarone HCl 200 mg 11/27/21 08:00 11/27/21 08:52 Amiodarone Hcl 200 Mg Tablet PO 200 mg DAILY@0800 CINDY Administration Apixaban 5 mg 11/26/21 23:40 11/27/21 08:51 Apixaban 5 Mg Tablet PO 5 mg Q12HR CINDY Administration Atorvastatin Calcium 40 mg 11/26/21 23:40 11/27/21 00:25 Atorvastatin 40 Mg Tablet PO Not Given HS CINDY Baclofen 10 mg 11/27/21 09:00 11/27/21 08:52 Baclofen 10 Mg Tablet PO 10 mg BID CINDY Administration Chlorpheniramine Maleate 4 mg 11/26/21 23:05 Chlorpheniramine Maleate 4 Mg Tablet PO Q4H CINDY Dextrose 12.5 gm 11/26/21 14:32 Dextrose 50% 25 Gm/50 Ml Syringe IV PUSH PRN PRN Hypoglycemia Protocol Ezetimibe 10 mg 11/27/21 09:00 11/27/21 08:52 Ezetimibe 10 Mg Tablet PO 10 mg DAILY CINDY Administration Gabapentin 300 mg 11/27/21 09:00 11/27/21 08:52 Gabapentin 300 Mg Capsule PO 300 mg DAILY CINDY Administration Glucagon 1 mg 11/26/21 14:32 Glucagon For Inj 1 Mg Vial IM PRN PRN Hypoglycemia Protocol Glucose 15 gm 11/26/21 14:32 Glucose Oral Gel 15 Gm Of Glucse In 37.5 Gm Tube PO PRN PRN Hypoglycemia Protocol Dextrose 1,000 mls @ 100 mls
[2021-11-27 13:35] LABS: Sodium 122 mmol/L (137-145)
[2021-11-27 13:49] LABS: Total Triiodothyronine (T3) 0.32 NG/ML (0.97-1.69)
[2021-11-27 17:02] LABS: Glucose Point of Care 190 mg/dl (65-105)
[2021-11-27 19:49] LABS: Sodium 123 mmol/L (137-145)
[2021-11-27] MEDS: ATORVASTATIN 40 MG TABLET PO (22:02)
[2021-11-27 23:04] LABS: Glucose Point of Care 276 mg/dl (65-105)
[2021-11-28] VITALS (11 sets, daily range): BP systolic 114–138; BP diastolic 48–54; PULSE 62–74; RESP 16–18; TEMP 37–37.4; O2SAT 95–97
[2021-11-28] MEDS: VANCOMYCIN ORAL 125 MG/2.5 ML SYRUP PO ×4 (03:10→17:04)
[2021-11-28] MEDS: ONDANSETRON INJ 4 MG/2 ML VIAL IV PUSH ×3 (05:27→21:31)
[2021-11-28 06:30] LABS: Basophils Percent Auto 0.3 % (0.2-1.2); Eosinophils Absolute Auto 0.2 K/mm3 (0-0.3); Eosinophils Percent Auto 1.6 % (0-4.4); Hematocrit 24.7 % (37.0-47.0); Hemoglobin 7.9 g/dL (12.0-15.0); Immature Granulocyte Absolute 0.11 K/mm3 (0.00-0.031); Immature Granulocyte Percent A 1.1 % (0-0.5); Lymphocytes Absolute Auto 0.86 K/mm3 (0.9-3.2); Lymphocytes Percent Auto 8.3 % (18.3-44.2); Mean Corpuscular Hemoglobin 33.2 pg (26-34); Mean Corpuscular Volume 103.8 fl (80-100); Mean Platelet Volume 8.9 fl (7.4-10.4); Monocytes Percent Auto 9.3 % (2.6-8.5); Neutrophils Absolute Auto 8.3 K/mm3 (1.3-6.7); Neutrophils Percent Auto 79.4 % (45.5-73.1); Platelet Count Result 380 k/mm3 (150-375); Red Blood Count 2.38 M/mm3 (4.2-5.4); Red Cell Distribution Width 14.2 % (11.5-14.5); White Blood Count 10.4 K/mm3 (4.5-10.0)
[2021-11-28 06:59] LABS: Alanine Aminotransferase 24 U/L (6-35); Albumin Level 2.4 g/dL (3.5-5.1); Alkaline Phosphatase 136 U/L (38-126); Anion Gap 2 mmol/L (8-16); Aspartate Amino Transferase 46 U/L (14-36); Bilirubin,Total 0.8 mg/dL (0.2-1.3); Blood Urea Nitrogen 23 mg/dL (7-17); Calcium 7.6 mg/dL (8.4-10.2); Carbon Dioxide 24 mmol/L (22-30); Chloride 100 mmol/L (98-107); Estimated CRCL calculation 41 ml/min; Estimated Glomerular Filt Rate > 60; Glucose 188 mg/dL (65-110); Potassium 4.1 mmol/L (3.4-5.0); Sodium 126 mmol/L (137-145)
[2021-11-28 08:04] LABS: Glucose Point of Care 231 mg/dl (65-105)
[2021-11-28] MEDS: SODIUM CHLORIDE 1 GM TABLET PO ×2 (09:04→17:04)
[2021-11-28] MEDS: PANTOPRAZOLE 40 MG TABLET PO (09:04)
[2021-11-28] MEDS: GABAPENTIN 300 MG CAPSULE PO (09:04)
[2021-11-28] MEDS: BACLOFEN 10 MG TABLET PO ×2 (09:04→17:04)
[2021-11-28] MEDS: EZETIMIBE 10 MG TABLET PO (09:04)
[2021-11-28] MEDS: ISOSORBIDE MONONITRATE 30 MG TAB.ER.24H PO (09:04)
[2021-11-28] MEDS: LOSARTAN POTASSIUM 12.5 MG TABLET PO (09:04)
[2021-11-28] MEDS: METOPROLOL SUCCINATE EXT REL 12.5 MG TABCR PO (09:04)
[2021-11-28] MEDS: APIXABAN 5 MG TABLET PO ×2 (09:04→21:25)
[2021-11-28] MEDS: INSULIN ASPART (*BKC) 100 UNITS/ML SUB-Q ×3 (09:05→17:05)
[2021-11-28] MEDS: AMIODARONE HCL 200 MG TABLET PO (09:05)
--- NOTE | 2021-11-28 09:16 | PCSTNOTE ---
Please refer to the Bedside Swallow Evaluation in the EMR. Please note, silent aspiration cannot be ruled out at bedside.
--- NOTE | 2021-11-28 10:43 | P.PNNP_ITS ---
Progress Note: A&P Assessment and Plan (1) Hyponatremia: Code(s): E87.1 - Hypo-osmolality and hyponatremia Status: Acute Assessment and Plan: * presumably acute * suspect initially due to volume depletion given GI symptoms (nausea/vomiting/diarrhea) * however, issues with pain, use of narcotics, and use of PPI may be playing a role * evaluation to date: * TSH elevated but free T4 okay * cortisol okay * SPEP/UPEP/serum + urine osmolality pending * recent urine electrolytes suggest pre-renal azotemia * normal saline IVFs did not really improve sodium level * started on salt tablets today * follow serial sodium levels * goal rate of change in sodium is 4 - 6mmol/L in 24hr period of time (and not exceed 8mmol/L) (2) Clostridium difficile infection: Code(s): A49.8 - Other bacterial infections of unspecified site Status: Acute Assessment and Plan: * as noted by testing in ER * on oral vancomycin * consider adding florastor (3) Hypertension: Code(s): I10 - Essential (primary) hypertension Status: Chronic Assessment and Plan: * reasonable control at this time * follow trend of hemodynamics (4) Diabetes mellitus: Code(s): E11.9 - Type 2 diabetes mellitus without complications Status: Acute Assessment and Plan: * follow accuchecks * glycemic control Will continue to follow. Subjective Date/time seen: 11/28/21 10:43 Sodium doing better today as noted by AM labs; unhappy with her insulin regimen and fluctuating sugars; still with ongoing diarrhea; fluctuating appetite/oral intake given current illness; no issues/events overnight or earlier this morning. Exam Narrative: General: WD/WN female in NAD Heart: normal S1 and S2; no rub Lungs: clear to auscultation Abdomen: soft, nontender, nondistended, positive bowel sounds Extremities: no cyanosis or clubbing; no edema Skin: warm and intact Objective Data Vital Signs Vital Signs: Vital Signs Temp Pulse Resp BP Pulse Ox 11/28/21 09:05 74 11/28/21 09:04 74 11/28/21 05:54 37.3 C 65 18 120/48 L 97 11/28/21 04:00 62 11/28/21 00:00 67 11/27/21 22:00 37.5 C 70 18 158/60 H 98 11/27/21 21:55 68 11/27/21 20:14 94 11/27/21 17:48 93 11/27/21 16:00 67 11/27/21 14:00 37.2 C 67 16 118/47 L 96 11/27/21 12:00 67 Intake/Output Intake/Output: Intake & Output 11/25/21 11/26/21 11/27/21 11/28/21 23:59 23:59 23:59 23:59 Intake Total 1240 1960 340 Output Total 400 Balance 1240 1960 -60 Meds/Results Medications: Active Medications Generic Name Dose Route Start Last Admin Trade Name Freq PRN Reason Stop Dose Admin Acetaminophen/Codeine Phosphate 1 tab 11/26/21 23:05 Acetaminophen/Codeine (*Crx) 300/30 Mg Tablet PO Q6H PRN Pain Rated 4-6 Amiodarone HCl 200 mg 11/27/21 08:00 11/28/21 09:05 Amiodarone Hcl 200 Mg Tablet PO 200 mg DAILY@0800 CINDY Administration Apixaban 5 mg 11/26/21 23:40 11/28/21 09:04 Apixaban 5 Mg Tablet PO 5 mg Q12HR CINDY Administration Atorvastatin Calcium
--- NOTE | 2021-11-28 10:43 | PM.PNNEP ---
Progress Note: A&P Assessment and Plan (1) Hyponatremia: Code(s): E87.1 - Hypo-osmolality and hyponatremia Status: Acute Assessment and Plan: presumably acute suspect initially due to volume depletion given GI symptoms (nausea/vomiting/diarrhea) however, issues with pain, use of narcotics, and use of PPI may be playing a role evaluation to date: TSH elevated but free T4 okay cortisol okay SPEP/UPEP/serum + urine osmolality pending recent urine electrolytes suggest pre-renal azotemia normal saline IVFs did not really improve sodium level started on salt tablets today follow serial sodium levels goal rate of change in sodium is 4 - 6mmol/L in 24hr period of time (and not exceed 8mmol/L) (2) Clostridium difficile infection: Code(s): A49.8 - Other bacterial infections of unspecified site Status: Acute Assessment and Plan: as noted by testing in ER on oral vancomycin consider adding florastor (3) Hypertension: Code(s): I10 - Essential (primary) hypertension Status: Chronic Assessment and Plan: reasonable control at this time follow trend of hemodynamics (4) Diabetes mellitus: Code(s): E11.9 - Type 2 diabetes mellitus without complications Status: Acute Assessment and Plan: follow accuchecks glycemic control Will continue to follow. Subjective Date/time seen: 11/28/21 10:43 Sodium doing better today as noted by AM labs; unhappy with her insulin regimen and fluctuating sugars; still with ongoing diarrhea; fluctuating appetite/oral intake given current illness; no issues/events overnight or earlier this morning. Exam Narrative: General: WD/WN female in NAD Heart: normal S1 and S2; no rub Lungs: clear to auscultation Abdomen: soft, nontender, nondistended, positive bowel sounds Extremities: no cyanosis or clubbing; no edema Skin: warm and intact Objective Data Vital Signs Vital Signs: Vital Signs Temp Pulse Resp BP Pulse Ox 11/28/21 09:05 74 11/28/21 09:04 74 11/28/21 05:54 37.3 C 65 18 120/48 L 97 11/28/21 04:00 62 11/28/21 00:00 67 11/27/21 22:00 37.5 C 70 18 158/60 H 98 11/27/21 21:55 68 11/27/21 20:14 94 11/27/21 17:48 93 11/27/21 16:00 67 11/27/21 14:00 37.2 C 67 16 118/47 L 96 11/27/21 12:00 67 Intake/Output Intake/Output: Intake & Output 11/25/21 11/26/21 11/27/21 11/28/21 23:59 23:59 23:59 23:59 Intake Total 1240 1960 340 Output Total 400 Balance 1240 1960 -60 Meds/Results Medications: Active Medications Generic Name Dose Route Start Last Admin Trade Name Freq PRN Reason Stop Dose Admin Acetaminophen/Codeine Phosphate 1 tab 11/26/21 23:05 Acetaminophen/Codeine (*Crx) 300/30 Mg Tablet PO Q6H PRN Pain Rated 4-6 Amiodarone HCl 200 mg 11/27/21 08:00 11/28/21 09:05 Amiodarone Hcl 200 Mg Tablet PO 200 mg DAILY@0800 CINDY Administration Apixaban 5 mg 11/26/21 23:40 11/28/21 09:04 Apixaban 5 Mg Tablet PO 5 mg Q12HR CNIDY Administration Atorvastatin Calcium 40 mg 11/26/21 23:40 11/27/21 22:02 Atorvastatin 40 Mg Tablet PO 40 mg HS CINDY Administration Baclofen 10 mg 11/27/21 09:00 11/28/21 09:04 Baclofen 10 Mg Tablet PO 10 mg BID CINDY Administration Chlorpheniramine Maleate 4 mg 11/26/21 23:05 Chlorpheniramine Maleate 4 Mg Tablet PO Q4H PRN Allergic Symptoms Dextrose 12.5 gm 11/26/21 14:32 Dextrose 50% 25 Gm/50 Ml Syringe IV PUSH PRN PRN Hypoglycemia Protocol Ezetimibe 10 mg 11/27/21 09:00 11/28/21 09:04 Ezetimibe 10 Mg Tablet PO 10 mg DAILY CINDY Administration Gabapentin 300 mg 11/27/21 09:00 11/28/21 09:04 Gabapentin 300 Mg Capsule PO 300 mg DAILY CINDY Administration Glucagon 1 mg 11/26/21 14:32 Glucagon For Inj 1 Mg Vial IM PRN PRN Hypoglycemia Protocol Gluco
--- NOTE | 2021-11-28 10:45 | P.PNIM_ITS ---
Progress Note: A&P Assessment and Plan (1) Clostridium difficile infection: Code(s): A49.8 - Other bacterial infections of unspecified site Status: Acute Assessment and Plan: * Report diarrhea since the 6th * Recent antibiotics with hip replacement * C. Diff came back positive * Vancomycin 125mg PO Q6HR started day 2 * Trend output * Trend electrolytes * Watch for dehydration (2) Hyponatremia: Code(s): E87.1 - Hypo-osmolality and hyponatremia Status: Acute Assessment and Plan: * Current Na 126 * Seems to have been low on 11/24/21 * Trend labs * Nephro consult thank you * IV fluids on board * Urine sodium 12, Urine creatinine is 96.8 * Urine studies pending * Corrected Na 127/128, since glucose is 188 * Could be related to dehydration from excessive diarrhea (3) Diabetes mellitus: Code(s): E11.9 - Type 2 diabetes mellitus without complications Status: Acute Assessment and Plan: * Current glucose is 188 * Accu cheks achs * Current use of insulin pump * ISS * U-100 at home * Check A1c * Adjust therapy as indicated (4) Hypertension: Code(s): I10 - Essential (primary) hypertension Status: Chronic Assessment and Plan: * Current BP 114/54 * Continue home Imdur 30mg PO daily, Losartan 12.5mg PO daily, Metoprolol 12.5mg PO daily * Trend blood pressure * Adjust therapy as indicated (5) Afib: Code(s): I48.91 - Unspecified atrial fibrillation Status: Acute Assessment and Plan: * Hx of a. fib * Continue amiodarone 200mg PO daily, Eliquis, and metoprolol 12.5mg PO daily * Tele monitor * Rate seems controlled (6) Anemia: Code(s): D64.9 - Anemia, unspecified Status: Acute Assessment and Plan: * Current H/H 7.9/24.7 * Anemia labs ordered * Supplement as indicated * Trend labs (7) UTI (urinary tract infection): Code(s): N39.0 - Urinary tract infection, site not specified Status: Acute Assessment and Plan: * Morganella morganii and Enterococcus species * Started on ceftriaxone and vanco * WBC 10.4 * Trend symptoms * Trend labs * Sensitivities support current therapy Time Spent With Patient Time with patient: Greater than 35 minutes Subjective Date/time seen: 11/28/21 15:10 Interval history: 11/26/21 13:18 Narrative: Ms. Rowan is a 76-year-old female who presented to the emergency room with complaints of nausea with minimal vomiting and diarrhea that started on Saturday. Patient states she did have left total hip replacement performed on 11/08 by in [place], [place]. Patient states she had been doing well until 11/24/2021. Patient states that she was seen in the emergency room and was told that her sodium was low and was offered admission, but she declined. Patient states that she went home and then started having diarrhea. Patient states she has been nauseated and had minimal vomiting. Patient states she more spits up then vomits. Patient denies any fever or chills. Patient denies any chest pain, shortness breast, lightheadedness, dizziness, syncopal, or near syncopal episodes. Patient states that she was on antibiotics 3 days after having her left total hip replacement. Upon evaluation in emergency room patient was noted to have worsening hyponatremia and had diarrhea. Patient did come back positive for C di
--- NOTE | 2021-11-28 10:45 | PM.IMPN ---
Progress Note: A&P Assessment and Plan (1) Clostridium difficile infection: Code(s): A49.8 - Other bacterial infections of unspecified site Status: Acute Assessment and Plan: Report diarrhea since the 6th Recent antibiotics with hip replacement C. Diff came back positive Vancomycin 125mg PO Q6HR started day 2 Trend output Trend electrolytes Watch for dehydration (2) Hyponatremia: Code(s): E87.1 - Hypo-osmolality and hyponatremia Status: Acute Assessment and Plan: Current Na 126 Seems to have been low on 11/24/21 Trend labs Nephro consult thank you IV fluids on board Urine sodium 12, Urine creatinine is 96.8 Urine studies pending Corrected Na 127/128, since glucose is 188 Could be related to dehydration from excessive diarrhea (3) Diabetes mellitus: Code(s): E11.9 - Type 2 diabetes mellitus without complications Status: Acute Assessment and Plan: Current glucose is 188 Accu cheks achs Current use of insulin pump ISS U-100 at home Check A1c Adjust therapy as indicated (4) Hypertension: Code(s): I10 - Essential (primary) hypertension Status: Chronic Assessment and Plan: Current BP 114/54 Continue home Imdur 30mg PO daily, Losartan 12.5mg PO daily, Metoprolol 12.5mg PO daily Trend blood pressure Adjust therapy as indicated (5) Afib: Code(s): I48.91 - Unspecified atrial fibrillation Status: Acute Assessment and Plan: Hx of a. fib Continue amiodarone 200mg PO daily, Eliquis, and metoprolol 12.5mg PO daily Tele monitor Rate seems controlled (6) Anemia: Code(s): D64.9 - Anemia, unspecified Status: Acute Assessment and Plan: Current H/H 7.9/24.7 Anemia labs ordered Supplement as indicated Trend labs (7) UTI (urinary tract infection): Code(s): N39.0 - Urinary tract infection, site not specified Status: Acute Assessment and Plan: Morganella morganii and Enterococcus species Started on ceftriaxone and vanco WBC 10.4 Trend symptoms Trend labs Sensitivities support current therapy Time Spent With Patient Time with patient: Greater than 35 minutes Subjective Date/time seen: 11/28/21 15:10 Interval history: 11/26/21 13:18 Narrative: Ms. Rowan is a 76-year-old female who presented to the emergency room with complaints of nausea with minimal vomiting and diarrhea that started on Saturday. Patient states she did have left total hip replacement performed on 11/08 by in [place], [place]. Patient states she had been doing well until 11/24/2021. Patient states that she was seen in the emergency room and was told that her sodium was low and was offered admission, but she declined. Patient states that she went home and then started having diarrhea. Patient states she has been nauseated and had minimal vomiting. Patient states she more spits up then vomits. Patient denies any fever or chills. Patient denies any chest pain, shortness breast, lightheadedness, dizziness, syncopal, or near syncopal episodes. Patient states that she was on antibiotics 3 days after having her left total hip replacement. Upon evaluation in emergency room patient was noted to have worsening hyponatremia and had diarrhea. Patient did come back positive for C difficile. Patient has a known history of atrial fibrillation, dyslipidemia, diabetes mellitus, and hypertension. 11/27/21 1230 Patient stated that she was doing very well today. She stated that she has no control over her bowel, continue was cramping, nausea, diarrhea, and incontinence. Patient stated that she has had about 6 bouts of diarrhea throughout the day and stated that it could be more however she does not know when she is always going. Patient also stated that she feels like her legs are swelling and was concerned about DVTs and would
[2021-11-28 11:55] LABS: Glucose Point of Care 327 mg/dl (65-105)
[2021-11-28 17:09] LABS: Glucose Point of Care 294 mg/dl (65-105)
[2021-11-28] MEDS: ATORVASTATIN 40 MG TABLET PO (21:25)
[2021-11-28 22:32] LABS: Glucose Point of Care 269 mg/dl (65-105)
[2021-11-29] VITALS: PULSE 70
[2021-11-29] MEDS: VANCOMYCIN ORAL 125 MG/2.5 ML SYRUP PO ×5 (00:53→23:42)
[2021-11-29 04:00] VITALS: PULSE 68
[2021-11-29 06:31] LABS: Basophils Percent Auto 0.4 % (0.2-1.2); Eosinophils Absolute Auto 0.1 K/mm3 (0-0.3); Eosinophils Percent Auto 1.2 % (0-4.4); Hemoglobin 7.6 g/dL (12.0-15.0); Immature Granulocyte Percent A 1.8 % (0-0.5); Mean Corpuscular Hemoglobin 33.3 pg (26-34); Mean Corpuscular Volume 100.9 fl (80-100); Mean Platelet Volume 8.7 fl (7.4-10.4); Monocytes Percent Auto 9.2 % (2.6-8.5); Neutrophils Percent Auto 79.4 % (45.5-73.1); Platelet Count Result 358 k/mm3 (150-375); Red Blood Count 2.28 M/mm3 (4.2-5.4); Red Cell Distribution Width 14.5 % (11.5-14.5); White Blood Count 11.3 K/mm3 (4.5-10.0)
[2021-11-29 06:49] LABS: Alanine Aminotransferase 21 U/L (6-35); Albumin Level 2.4 g/dL (3.5-5.1); Alkaline Phosphatase 140 U/L (38-126); Anion Gap 3 mmol/L (8-16); Aspartate Amino Transferase 34 U/L (14-36); Bilirubin,Total 0.7 mg/dL (0.2-1.3); Blood Urea Nitrogen 17 mg/dL (7-17); Calcium 7.3 mg/dL (8.4-10.2); Carbon Dioxide 22 mmol/L (22-30); Chloride 98 mmol/L (98-107); Estimated CRCL calculation 46 ml/min; Estimated Glomerular Filt Rate > 60; Glucose 288 mg/dL (65-110); Magnesium 1.7 mg/dL (1.6-2.3); Sodium 123 mmol/L (137-145)
[2021-11-29 07:49] LABS: Glucose Point of Care 329 mg/dl (65-105)
[2021-11-29 08:00] VITALS: PULSE 65
[2021-11-29] MEDS: EZETIMIBE 10 MG TABLET PO (08:56)
[2021-11-29 08:57] VITALS: PULSE 69
[2021-11-29] MEDS: SODIUM CHLORIDE 1 GM TABLET PO ×2 (08:57→17:12)
[2021-11-29] MEDS: ONDANSETRON INJ 4 MG/2 ML VIAL IV PUSH ×3 (08:57→22:31)
[2021-11-29] MEDS: GABAPENTIN 300 MG CAPSULE PO (08:57)
[2021-11-29] MEDS: PANTOPRAZOLE 40 MG TABLET PO (08:57)
[2021-11-29] MEDS: BACLOFEN 10 MG TABLET PO ×2 (08:57→17:12)
[2021-11-29] MEDS: APIXABAN 5 MG TABLET PO ×2 (08:57→20:22)
[2021-11-29] MEDS: AMIODARONE HCL 200 MG TABLET PO (08:57)
[2021-11-29] MEDS: ISOSORBIDE MONONITRATE 30 MG TAB.ER.24H PO (08:57)
[2021-11-29] MEDS: METOPROLOL SUCCINATE EXT REL 12.5 MG TABCR PO (08:57)
[2021-11-29] MEDS: LOSARTAN POTASSIUM 12.5 MG TABLET PO (08:57)
[2021-11-29] MEDS: INSULIN ASPART (*BKC) 100 UNITS/ML SUB-Q ×5 (08:58→17:13)
[2021-11-29] MEDS: INSULIN HUMAN NPH (*BKC) 100 UNITS/ML 15 UNITS SUB-Q (08:58)
--- NOTE | 2021-11-29 11:00 | PM.IMPN ---
Progress Note: A&P Assessment and Plan (1) Clostridium difficile infection: Code(s): A49.8 - Other bacterial infections of unspecified site Status: Acute Assessment and Plan: Report diarrhea since the 6th Recent antibiotics with hip replacement C. Diff came back positive Vancomycin 125mg PO Q6HR started day 3 Trend output Trend electrolytes Watch for dehydration (2) Hyponatremia: Code(s): E87.1 - Hypo-osmolality and hyponatremia Status: Acute Assessment and Plan: Current Na 123 Seems to have been low on 11/24/21 Trend labs Nephro consult thank you Urine sodium 12, Urine creatinine is 96.8 Urine studies pending Corrected Na 126/128, since glucose is 288 Could be related to dehydration from excessive diarrhea (3) Diabetes mellitus: Code(s): E11.9 - Type 2 diabetes mellitus without complications Status: Acute Assessment and Plan: Current glucose is 288 Accu cheks achs Current use of insulin pump ISS U-100 at home Scheduled meal time insulin One time dose of NPH Check A1c Adjust therapy as indicated (4) Hypertension: Code(s): I10 - Essential (primary) hypertension Status: Chronic Assessment and Plan: Current BP 138/49 Continue home Imdur 30mg PO daily, Losartan 12.5mg PO daily, Metoprolol 12.5mg PO daily Trend blood pressure Adjust therapy as indicated (5) Afib: Code(s): I48.91 - Unspecified atrial fibrillation Status: Acute Assessment and Plan: Hx of a. fib Continue amiodarone 200mg PO daily, Eliquis, and metoprolol 12.5mg PO daily Tele monitor SR with controlled rate Rate seems controlled (6) Anemia: Code(s): D64.9 - Anemia, unspecified Status: Acute Assessment and Plan: Current H/H 7.6/23.0 Anemia labs pending Supplement as indicated Trend labs (7) UTI (urinary tract infection): Code(s): N39.0 - Urinary tract infection, site not specified Status: Acute Assessment and Plan: Morganella morganii and Enterococcus species Started on ceftriaxone and vanco WBC 11.3 Trend symptoms Trend labs Sensitivities support current therapy Time Spent With Patient Time with patient: Greater than 35 minutes Subjective Date/time seen: 11/29/21 11:00 Interval history: 11/26/21 13:18 Narrative: Ms. Rowan is a 76-year-old female who presented to the emergency room with complaints of nausea with minimal vomiting and diarrhea that started on Saturday. Patient states she did have left total hip replacement performed on 11/08 by in [place], [place]. Patient states she had been doing well until 11/24/2021. Patient states that she was seen in the emergency room and was told that her sodium was low and was offered admission, but she declined. Patient states that she went home and then started having diarrhea. Patient states she has been nauseated and had minimal vomiting. Patient states she more spits up then vomits. Patient denies any fever or chills. Patient denies any chest pain, shortness breast, lightheadedness, dizziness, syncopal, or near syncopal episodes. Patient states that she was on antibiotics 3 days after having her left total hip replacement. Upon evaluation in emergency room patient was noted to have worsening hyponatremia and had diarrhea. Patient did come back positive for C difficile. Patient has a known history of atrial fibrillation, dyslipidemia, diabetes mellitus, and hypertension. 11/27/21 1230 Patient stated that she was doing very well today. She stated that she has no control over her bowel, continue was cramping, nausea, diarrhea, and incontinence. Patient stated that she has had about 6 bouts of diarrhea throughout the day and stated that it could be more however she does not know when she is always going. Patient also stated that she feels like her l
--- NOTE | 2021-11-29 11:00 | P.PNIM_ITS ---
Progress Note: A&P Assessment and Plan (1) Clostridium difficile infection: Code(s): A49.8 - Other bacterial infections of unspecified site Status: Acute Assessment and Plan: * Report diarrhea since the 6th * Recent antibiotics with hip replacement * C. Diff came back positive * Vancomycin 125mg PO Q6HR started day 3 * Trend output * Trend electrolytes * Watch for dehydration (2) Hyponatremia: Code(s): E87.1 - Hypo-osmolality and hyponatremia Status: Acute Assessment and Plan: * Current Na 123 * Seems to have been low on 11/24/21 * Trend labs * Nephro consult thank you * Urine sodium 12, Urine creatinine is 96.8 * Urine studies pending * Corrected Na 126/128, since glucose is 288 * Could be related to dehydration from excessive diarrhea (3) Diabetes mellitus: Code(s): E11.9 - Type 2 diabetes mellitus without complications Status: Acute Assessment and Plan: * Current glucose is 288 * Accu cheks achs * Current use of insulin pump * ISS * U-100 at home * Scheduled meal time insulin * One time dose of NPH * Check A1c * Adjust therapy as indicated (4) Hypertension: Code(s): I10 - Essential (primary) hypertension Status: Chronic Assessment and Plan: * Current BP 138/49 * Continue home Imdur 30mg PO daily, Losartan 12.5mg PO daily, Metoprolol 12.5mg PO daily * Trend blood pressure * Adjust therapy as indicated (5) Afib: Code(s): I48.91 - Unspecified atrial fibrillation Status: Acute Assessment and Plan: * Hx of a. fib * Continue amiodarone 200mg PO daily, Eliquis, and metoprolol 12.5mg PO daily * Tele monitor SR with controlled rate * Rate seems controlled (6) Anemia: Code(s): D64.9 - Anemia, unspecified Status: Acute Assessment and Plan: * Current H/H 7.6/23.0 * Anemia labs pending * Supplement as indicated * Trend labs (7) UTI (urinary tract infection): Code(s): N39.0 - Urinary tract infection, site not specified Status: Acute Assessment and Plan: * Morganella morganii and Enterococcus species * Started on ceftriaxone and vanco * WBC 11.3 * Trend symptoms * Trend labs * Sensitivities support current therapy Time Spent With Patient Time with patient: Greater than 35 minutes Subjective Date/time seen: 11/29/21 11:00 Interval history: 11/26/21 13:18 Narrative: Ms. Rowan is a 76-year-old female who presented to the emergency room with complaints of nausea with minimal vomiting and diarrhea that started on Saturday. Patient states she did have left total hip replacement performed on 11/08 by in [place], [place]. Patient states she had been doing well until 11/24/2021. Patient states that she was seen in the emergency room and was told that her sodium was low and was offered admission, but she declined. Patient states that she went home and then started having diarrhea. Patient states she has been nauseated and had minimal vomiting. Patient states she more spits up then vomits. Patient denies any fever or chills. Patient denies any chest pain, shortness breast, lightheadedness, dizziness, syncopal, or near syncopal episodes. Patient states that she was on antibiotics 3 days after having her left total hip replacement. Upon evaluation in emergency room patient was noted to have worsening hyponatremia an
[2021-11-29 11:16] LABS: Glucose Point of Care 343 mg/dl (65-105)
--- NOTE | 2021-11-29 12:50 | P.PNNP_ITS ---
Progress Note: A&P Assessment and Plan (1) Hyponatremia: Code(s): E87.1 - Hypo-osmolality and hyponatremia Status: Acute Assessment and Plan: * presumably acute * suspect initially due to volume depletion given GI symptoms (nausea/vomiting/diarrhea) * however, issues with pain, use of narcotics, and use of PPI may be playing a role * evaluation to date: * TSH elevated but free T4 okay * cortisol okay * SPEP/UPEP/serum + urine osmolality pending * recent urine electrolytes suggest pre-renal azotemia * normal saline IVFs did not really improve sodium level * on salt tablets * since has some issues with LE edema, will add low dose lasix but will have to be careful this does result in volume depletion * follow serial sodium levels * goal rate of change in sodium is 4 - 6mmol/L in 24hr period of time (and not exceed 8mmol/L) (2) Clostridium difficile infection: Code(s): A49.8 - Other bacterial infections of unspecified site Status: Acute Assessment and Plan: * as noted by testing in ER * on oral vancomycin (3) Hypertension: Code(s): I10 - Essential (primary) hypertension Status: Chronic Assessment and Plan: * reasonable control at this time * follow trend of hemodynamics (4) Diabetes mellitus: Code(s): E11.9 - Type 2 diabetes mellitus without complications Status: Acute Assessment and Plan: * follow accuchecks * glycemic control Will continue to follow. Subjective Date/time seen: 11/29/21 12:50 Appetite/oral intake remains suboptimal; complaints of generalized weakness at the time of my visit; also reports more swelling/edema in her lower extremities currently; blood sugars somewhat erratic; sodium still running low by recent check. Exam Narrative: General: WD/WN female in NAD Heart: normal S1 and S2; no rub Lungs: clear to auscultation Abdomen: soft, nontender, nondistended, positive bowel sounds Extremities: no cyanosis or clubbing; trace edema Skin: warm and intact Objective Data Vital Signs Vital Signs: Vital Signs Temp Pulse Resp BP Pulse Ox 11/29/21 08:57 69 11/29/21 08:00 65 11/29/21 04:00 68 11/29/21 00:00 70 11/28/21 22:00 37.4 C 73 18 138/49 L 95 11/28/21 20:00 72 Intake/Output Intake/Output: Intake & Output 11/26/21 11/27/21 11/28/21 11/29/21 23:59 23:59 23:59 23:59 Intake Total 1240 1960 1860 236 Output Total 400 Balance 1240 1960 1460 236 Meds/Results Medications: Active Medications Generic Name Dose Route Start Last Admin Trade Name Freq PRN Reason Stop Dose Admin Acetaminophen/Codeine Phosphate 1 tab 11/26/21 23:05 Acetaminophen/Codeine (*Crx) 300/30 Mg Tablet PO Q6H PRN Pain Rated 4-6 Amiodarone HCl 200 mg 11/27/21 08:00 11/29/21 08:57 Amiodarone Hcl 200 Mg Tablet PO 200 mg DAILY@0800 CINDY Administration Apixaban 5 mg 11/26/21 23:40 11/29/21 08:57 Apixaban 5 Mg Tablet PO 5 mg Q12HR CINDY Administration Atorvastatin Calcium 40 mg 11/26/21 23:40 11/28/21 21:25 Atorvastatin 40 Mg Tablet PO 40 mg HS CINDY Administration Baclofen 10 mg
--- NOTE | 2021-11-29 12:50 | PM.PNNEP ---
Progress Note: A&P Assessment and Plan (1) Hyponatremia: Code(s): E87.1 - Hypo-osmolality and hyponatremia Status: Acute Assessment and Plan: presumably acute suspect initially due to volume depletion given GI symptoms (nausea/vomiting/diarrhea) however, issues with pain, use of narcotics, and use of PPI may be playing a role evaluation to date: TSH elevated but free T4 okay cortisol okay SPEP/UPEP/serum + urine osmolality pending recent urine electrolytes suggest pre-renal azotemia normal saline IVFs did not really improve sodium level on salt tablets since has some issues with LE edema, will add low dose lasix but will have to be careful this does result in volume depletion follow serial sodium levels goal rate of change in sodium is 4 - 6mmol/L in 24hr period of time (and not exceed 8mmol/L) (2) Clostridium difficile infection: Code(s): A49.8 - Other bacterial infections of unspecified site Status: Acute Assessment and Plan: as noted by testing in ER on oral vancomycin (3) Hypertension: Code(s): I10 - Essential (primary) hypertension Status: Chronic Assessment and Plan: reasonable control at this time follow trend of hemodynamics (4) Diabetes mellitus: Code(s): E11.9 - Type 2 diabetes mellitus without complications Status: Acute Assessment and Plan: follow accuchecks glycemic control Will continue to follow. Subjective Date/time seen: 11/29/21 12:50 Appetite/oral intake remains suboptimal; complaints of generalized weakness at the time of my visit; also reports more swelling/edema in her lower extremities currently; blood sugars somewhat erratic; sodium still running low by recent check. Exam Narrative: General: WD/WN female in NAD Heart: normal S1 and S2; no rub Lungs: clear to auscultation Abdomen: soft, nontender, nondistended, positive bowel sounds Extremities: no cyanosis or clubbing; trace edema Skin: warm and intact Objective Data Vital Signs Vital Signs: Vital Signs Temp Pulse Resp BP Pulse Ox 11/29/21 08:57 69 11/29/21 08:00 65 11/29/21 04:00 68 11/29/21 00:00 70 11/28/21 22:00 37.4 C 73 18 138/49 L 95 11/28/21 20:00 72 Intake/Output Intake/Output: Intake & Output 11/26/21 11/27/21 11/28/21 11/29/21 23:59 23:59 23:59 23:59 Intake Total 1240 1960 1860 236 Output Total 400 Balance 1240 1960 1460 236 Meds/Results Medications: Active Medications Generic Name Dose Route Start Last Admin Trade Name Freq PRN Reason Stop Dose Admin Acetaminophen/Codeine Phosphate 1 tab 11/26/21 23:05 Acetaminophen/Codeine (*Crx) 300/30 Mg Tablet PO Q6H PRN Pain Rated 4-6 Amiodarone HCl 200 mg 11/27/21 08:00 11/29/21 08:57 Amiodarone Hcl 200 Mg Tablet PO 200 mg DAILY@0800 CINDY Administration Apixaban 5 mg 11/26/21 23:40 11/29/21 08:57 Apixaban 5 Mg Tablet PO 5 mg Q12HR CINDY Administration Atorvastatin Calcium 40 mg 11/26/21 23:40 11/28/21 21:25 Atorvastatin 40 Mg Tablet PO 40 mg HS CINDY Administration Baclofen 10 mg 11/27/21 09:00 11/29/21 08:57 Baclofen 10 Mg Tablet PO 10 mg BID CINDY Administration Chlorpheniramine Maleate 4 mg 11/26/21 23:05 Chlorpheniramine Maleate 4 Mg Tablet PO Q4H PRN Allergic Symptoms Dextrose 12.5 gm 11/26/21 14:32 Dextrose 50% 25 Gm/50 Ml Syringe IV PUSH PRN PRN Hypoglycemia Protocol Ezetimibe 10 mg 11/27/21 09:00 11/29/21 08:56 Ezetimibe 10 Mg Tablet PO 10 mg DAILY CINDY Administration Gabapentin 300 mg 11/27/21 09:00 11/29/21 08:57 Gabapentin 300 Mg Capsule PO 300 mg DAILY CINDY Administration Glucagon 1 mg 11/26/21 14:32 Glucagon For Inj 1 Mg Vial IM PRN PRN Hypoglycemia Protocol Glucose 15 gm 11/26/21 14:32 Glucose Oral Gel 15 Gm Of Glucse In 37.5 Gm Tube PO PRN PRN
[2021-11-29 13:05] LABS: Osmolality, Urine 584 mOsm/kg (50-1200)
[2021-11-29 13:16] LABS: NT Pro B Type Natriuretic Pept 5510 pg/mL (5-100)
[2021-11-29 14:00] VITALS: BP 106/50; PULSE 66; RESP 16; TEMP 36.7; O2SAT 96
[2021-11-29 16:45] LABS: Glucose Point of Care 192 mg/dl (65-105)
[2021-11-29] MEDS: FUROSEMIDE 20 MG TABLET PO (20:22)
[2021-11-29] MEDS: ATORVASTATIN 40 MG TABLET PO (20:22)
[2021-11-29 22:00] VITALS: BP 117/46; PULSE 66; RESP 18; TEMP 36.6; O2SAT 97
[2021-11-29 22:11] LABS: Glucose Point of Care 90 mg/dl (65-105)
[2021-11-30] VITALS (7 sets, daily range): BP systolic 105–126; BP diastolic 41–50; PULSE 60–76; RESP 16–18; TEMP 37–37.3; O2SAT 97–98
[2021-11-30] MEDS: VANCOMYCIN ORAL 125 MG/2.5 ML SYRUP PO ×3 (05:42→17:39)
[2021-11-30 07:05] LABS: Basophils Percent Auto 0.3 % (0.2-1.2); Eosinophils Absolute Auto 0.2 K/mm3 (0-0.3); Eosinophils Percent Auto 1.4 % (0-4.4); Hematocrit 23.3 % (37.0-47.0); Hemoglobin 7.7 g/dL (12.0-15.0); Immature Granulocyte Absolute 0.18 K/mm3 (0.00-0.031); Immature Granulocyte Percent A 1.2 % (0-0.5); Lymphocytes Absolute Auto 0.92 K/mm3 (0.9-3.2); Lymphocytes Percent Auto 6.1 % (18.3-44.2); Mean Corpuscular Hemoglobin 32.8 pg (26-34); Mean Corpuscular Volume 99.1 fl (80-100); Mean Platelet Volume 9.1 fl (7.4-10.4); Monocytes Absolute Auto 1.3 K/mm3 (0.1-0.6); Monocytes Percent Auto 8.4 % (2.6-8.5); Neutrophils Absolute Auto 12.4 K/mm3 (1.3-6.7); Neutrophils Percent Auto 82.6 % (45.5-73.1); Platelet Count Result 384 k/mm3 (150-375); Red Blood Count 2.35 M/mm3 (4.2-5.4); Red Cell Distribution Width 14.6 % (11.5-14.5); White Blood Count 15.1 K/mm3 (4.5-10.0)
[2021-11-30 07:14] LABS: Hemoglobin A1C 6.2 % (<5.7)
[2021-11-30 07:18] LABS: Lactate Dehydrogenase 695 U/L (313-618)
[2021-11-30 07:26] LABS: Iron 23 ug/dL (37-170); Transferrin 157 mg/dL (206-381)
[2021-11-30 07:36] LABS: Percent Iron Saturation 9 % (20-50)
[2021-11-30 08:27] LABS: Glucose Point of Care 70 mg/dl (65-105)
[2021-11-30] MEDS: METOPROLOL SUCCINATE EXT REL 12.5 MG TABCR PO (08:52)
[2021-11-30] MEDS: GABAPENTIN 300 MG CAPSULE PO (08:52)
[2021-11-30] MEDS: APIXABAN 5 MG TABLET PO ×2 (08:53→20:07)
[2021-11-30] MEDS: AMIODARONE HCL 200 MG TABLET PO (08:53)
[2021-11-30] MEDS: BACLOFEN 10 MG TABLET PO ×2 (08:53→16:52)
[2021-11-30] MEDS: ISOSORBIDE MONONITRATE 30 MG TAB.ER.24H PO (08:53)
[2021-11-30] MEDS: PANTOPRAZOLE 40 MG TABLET PO (08:53)
[2021-11-30] MEDS: EZETIMIBE 10 MG TABLET PO (08:53)
[2021-11-30] MEDS: LOSARTAN POTASSIUM 12.5 MG TABLET PO (08:54)
[2021-11-30] MEDS: SODIUM CHLORIDE 1 GM TABLET PO ×2 (08:54→16:59)
[2021-11-30] MEDS: FUROSEMIDE 10 MG TABLET PO ×2 (08:54→17:00)
--- NOTE | 2021-11-30 10:42 | PCNFU ---
Nutrition Follow-Up Complete: Inadequate oral intake R/T decreased appetite AEB pt report goal: Pt to meet >50% of estimated nutritional needs. patient has limited progress towards goal. We will continue towards goal. Pt current nutrition is DBCC. Last recorded weight is 56 kg-no new weight to report. Bowel Motility: +Bm reported 11/30 Labs Reviewed:Hct 23.3,Hgb 7.7 Meds Noted:Sodium Chloride Tab,Pacerone, Eliquis, Rocephin, Lasix, Neurontin, Zetia, Toprol, Vancomycin, Protonix, Imdur, Lioresal. Skin: WNL Additional Notes: Spoke with patient today, she states to not much of an appetite. She does not like the flavor of the Glucerna shake that we offer, but is going to continue them. Banatrol Plus due to CDiff, she would rater have in applesauce vs yogurt. Bedside Swallow performed on 11/28-passed. PO intake is encouraged. Agree with diet orders. Monitoring: Will monitor labs, medication, wt, and reported intake every 5 days.
--- NOTE | 2021-11-30 11:00 | PM.IMPN ---
Progress Note: A&P Assessment and Plan (1) Clostridium difficile infection: Code(s): A49.8 - Other bacterial infections of unspecified site Status: Acute Assessment and Plan: Report diarrhea since the 6th Recent antibiotics with hip replacement C. Diff came back positive Vancomycin 125mg PO Q6HR started day 4 Trend output Trend electrolytes Watch for dehydration Consider switching to fidoxomycin (2) Hyponatremia: Code(s): E87.1 - Hypo-osmolality and hyponatremia Status: Acute Assessment and Plan: Current Na 126 seems to be getting better Seems to have been low on 11/24/21 Trend labs Nephro consult thank you Urine sodium 12, Urine creatinine is 96.8 Urine studies pending Corrected Na 126/128, since glucose is 288 Could be related to dehydration from excessive diarrhea (3) Diabetes mellitus: Code(s): E11.9 - Type 2 diabetes mellitus without complications Status: Acute Assessment and Plan: Current glucose is 194 Accu cheks achs Current use of insulin pump ISS U-100 at home Scheduled meal time insulin Lantus 14 units daily 24 hour roll 33 A1c 6.2 Adjust therapy as indicated (4) Hypertension: Code(s): I10 - Essential (primary) hypertension Status: Chronic Assessment and Plan: Current BP 105/41 Continue home Imdur 30mg PO daily, Losartan 12.5mg PO daily, Metoprolol 12.5mg PO daily Trend blood pressure Adjust therapy as indicated (5) Afib: Code(s): I48.91 - Unspecified atrial fibrillation Status: Acute Assessment and Plan: Hx of a. fib Continue amiodarone 200mg PO daily, Eliquis, and metoprolol 12.5mg PO daily Tele monitor SR with controlled rate Rate seems controlled (6) Anemia: Code(s): D64.9 - Anemia, unspecified Status: Acute Assessment and Plan: Current H/H 7.7/23.3 Anemia labs iron 23, TIBC 244,% saturation 9, transferrin 157, B12 greater than 1000 LDH 695 P.o. iron added Supplement as indicated Trend labs (7) UTI (urinary tract infection): Code(s): N39.0 - Urinary tract infection, site not specified Status: Acute Assessment and Plan: Morganella morganii and Enterococcus species Started on ceftriaxone and vanco WBC 15.1 Trend symptoms Trend labs Sensitivities support current therapy Time Spent With Patient Time with patient: Greater than 35 minutes Subjective Date/time seen: 11/30/21 11:00 Interval history: 11/26/21 13:18 Narrative: Ms. Rowan is a 76-year-old female who presented to the emergency room with complaints of nausea with minimal vomiting and diarrhea that started on Saturday. Patient states she did have left total hip replacement performed on 11/08 by in [place], [place]. Patient states she had been doing well until 11/24/2021. Patient states that she was seen in the emergency room and was told that her sodium was low and was offered admission, but she declined. Patient states that she went home and then started having diarrhea. Patient states she has been nauseated and had minimal vomiting. Patient states she more spits up then vomits. Patient denies any fever or chills. Patient denies any chest pain, shortness breast, lightheadedness, dizziness, syncopal, or near syncopal episodes. Patient states that she was on antibiotics 3 days after having her left total hip replacement. Upon evaluation in emergency room patient was noted to have worsening hyponatremia and had diarrhea. Patient did come back positive for C difficile. Patient has a known history of atrial fibrillation, dyslipidemia, diabetes mellitus, and hypertension. 11/27/21 1230 Patient stated that she was doing very well today. She stated that she has no control over her bowel, continue was cramping, nausea, diarrhea, and incontinence. Patient stated that she has had about
--- NOTE | 2021-11-30 11:00 | P.PNIM_ITS ---
Progress Note: A&P Assessment and Plan (1) Clostridium difficile infection: Code(s): A49.8 - Other bacterial infections of unspecified site Status: Acute Assessment and Plan: * Report diarrhea since the 6th * Recent antibiotics with hip replacement * C. Diff came back positive * Vancomycin 125mg PO Q6HR started day 4 * Trend output * Trend electrolytes * Watch for dehydration * Consider switching to fidoxomycin (2) Hyponatremia: Code(s): E87.1 - Hypo-osmolality and hyponatremia Status: Acute Assessment and Plan: * Current Na 126 seems to be getting better * Seems to have been low on 11/24/21 * Trend labs * Nephro consult thank you * Urine sodium 12, Urine creatinine is 96.8 * Urine studies pending * Corrected Na 126/128, since glucose is 288 * Could be related to dehydration from excessive diarrhea (3) Diabetes mellitus: Code(s): E11.9 - Type 2 diabetes mellitus without complications Status: Acute Assessment and Plan: * Current glucose is 194 * Accu cheks achs * Current use of insulin pump * ISS * U-100 at home * Scheduled meal time insulin * Lantus 14 units daily * 24 hour roll 33 * A1c 6.2 * Adjust therapy as indicated (4) Hypertension: Code(s): I10 - Essential (primary) hypertension Status: Chronic Assessment and Plan: * Current BP 105/41 * Continue home Imdur 30mg PO daily, Losartan 12.5mg PO daily, Metoprolol 12.5mg PO daily * Trend blood pressure * Adjust therapy as indicated (5) Afib: Code(s): I48.91 - Unspecified atrial fibrillation Status: Acute Assessment and Plan: * Hx of a. fib * Continue amiodarone 200mg PO daily, Eliquis, and metoprolol 12.5mg PO daily * Tele monitor SR with controlled rate * Rate seems controlled (6) Anemia: Code(s): D64.9 - Anemia, unspecified Status: Acute Assessment and Plan: * Current H/H 7.7/23.3 * Anemia labs iron 23, TIBC 244,% saturation 9, transferrin 157, B12 greater than 1000 LDH 695 * P.o. iron added * Supplement as indicated * Trend labs (7) UTI (urinary tract infection): Code(s): N39.0 - Urinary tract infection, site not specified Status: Acute Assessment and Plan: * Morganella morganii and Enterococcus species * Started on ceftriaxone and vanco * WBC 15.1 * Trend symptoms * Trend labs * Sensitivities support current therapy Time Spent With Patient Time with patient: Greater than 35 minutes Subjective Date/time seen: 11/30/21 11:00 Interval history: 11/26/21 13:18 Narrative: Ms. Rowan is a 76-year-old female who presented to the emergency room with complaints of nausea with minimal vomiting and diarrhea that started on Saturday. Patient states she did have left total hip replacement performed on 11/08 by in [place], [place]. Patient states she had been doing well until 11/24/2021. Patient states that she was seen in the emergency room and was told that her sodium was low and was offered admission, but she declined. Patient states that she went home and then started having diarrhea. Patient states she has been nauseated and had minimal vomiting. Patient states she more spits up then vomits. Patient denies any fever or chills. Patient denies any chest pain, shortness breast, lightheadedness, dizziness, syncopal, or near syncopal episode
--- NOTE | 2021-11-30 11:32 | WPDCDIQUERY2 ---
CDI Query Clarification Request 11/28 Hospitalist documented: Anemia: Code(s): D64.9 - Anemia, unspecified Status: Acute Assessment and Plan: Current H/H 7.9/24.7 Anemia labs ordered Supplement as indicated Trend labs Lab results 11/29/21 H/H 7.6/23.0 11/30/21 H/H 7.7/23.3 Please clarify Acuity of anemia: Acute blood loss anemia Chronic blood loss anemia Acute on chronic blood loss anemia Other Unable to determine <Summer Mckeon - Last Filed: 11/30/21 11:40> Iron deficiency anemia noted by anemia labs <ANIBAL Srinivasan - Last Filed: 11/30/21 14:44>
[2021-11-30 12:01] LABS: Glucose Point of Care 287 mg/dl (65-105)
[2021-11-30] MEDS: INSULIN ASPART (*BKC) 100 UNITS/ML SUB-Q ×3 (12:15→17:40)
--- NOTE | 2021-11-30 12:59 | P.PNNP_ITS ---
Progress Note: A&P Assessment and Plan (1) Hyponatremia: Code(s): E87.1 - Hypo-osmolality and hyponatremia Status: Acute Assessment and Plan: * presumably acute * suspect initially due to volume depletion given GI symptoms (nausea/vomiting/diarrhea) * however, issues with pain, use of narcotics, and use of PPI may be playing a role * evaluation to date: * TSH elevated but free T4 okay * cortisol okay * SPEP/UPEP/serum + urine osmolality pending * recent urine electrolytes suggest pre-renal azotemia * normal saline IVFs did not really improve sodium level * on salt tablets * added low dose lasix but will have to be careful this does result in volume depletion * follow serial sodium levels * goal rate of change in sodium is 4 - 6mmol/L in 24hr period of time (and not exceed 8mmol/L) (2) Clostridium difficile infection: Code(s): A49.8 - Other bacterial infections of unspecified site Status: Acute Assessment and Plan: * as noted by testing in ER * on oral vancomycin (3) Hypertension: Code(s): I10 - Essential (primary) hypertension Status: Chronic Assessment and Plan: * reasonable control at this time * follow trend of hemodynamics (4) Diabetes mellitus: Code(s): E11.9 - Type 2 diabetes mellitus without complications Status: Acute Assessment and Plan: * follow accuchecks * glycemic control Will continue to follow. Subjective Date/time seen: 11/30/21 12:59 Started on low dose lasix yesterday due to lower extremity edema as well as to help improve sodium level - sodium a bit better by AM labs; still appears somewhat fatigued and tired; no apparent issues overnight or earlier this morning; oral intake continues to fluctuate as well. Exam Narrative: General: WD/WN female in NAD Heart: normal S1 and S2; no rub Lungs: clear to auscultation Abdomen: soft, nontender, nondistended, positive bowel sounds Extremities: no cyanosis or clubbing; trace edema Skin: warm and intact Objective Data Vital Signs Vital Signs: Vital Signs Temp Pulse Resp BP Pulse Ox 11/30/21 08:54 18 98 11/30/21 08:53 76 11/30/21 08:52 76 11/30/21 06:00 37.0 C 70 18 123/50 L 98 11/29/21 22:00 36.6 C 66 18 117/46 L 97 Intake/Output Intake/Output: Intake & Output 11/27/21 11/28/21 11/29/21 11/30/21 23:59 23:59 23:59 23:59 Intake Total 1959 1860 1006 940 Output Total 400 Balance 1959 1460 1006 940 Meds/Results Medications: Active Medications Generic Name Dose Route Start Last Admin Trade Name Freq PRN Reason Stop Dose Admin Acetaminophen/Codeine Phosphate 1 tab 11/26/21 23:05 Acetaminophen/Codeine (*Crx) 300/30 Mg Tablet PO Q6H PRN Pain Rated 4-6 Amiodarone HCl 200 mg 11/27/21 08:00 11/30/21 08:53 Amiodarone Hcl 200 Mg Tablet PO 200 mg DAILY@0800 CINDY Administration Apixaban 5 mg 11/26/21 23:40 11/30/21 08:53 Apixaban 5 Mg Tablet PO 5 mg Q12HR CINDY Administration Atorvastatin Calcium 40 mg 11/26/21 23:40 11/29/21 20:22 Atorvastatin 40 Mg Tablet PO 40 mg HS CINDY Administration Baclofen 10 mg 11/27/21 09:00
--- NOTE | 2021-11-30 12:59 | PM.PNNEP ---
Progress Note: A&P Assessment and Plan (1) Hyponatremia: Code(s): E87.1 - Hypo-osmolality and hyponatremia Status: Acute Assessment and Plan: presumably acute suspect initially due to volume depletion given GI symptoms (nausea/vomiting/diarrhea) however, issues with pain, use of narcotics, and use of PPI may be playing a role evaluation to date: TSH elevated but free T4 okay cortisol okay SPEP/UPEP/serum + urine osmolality pending recent urine electrolytes suggest pre-renal azotemia normal saline IVFs did not really improve sodium level on salt tablets added low dose lasix but will have to be careful this does result in volume depletion follow serial sodium levels goal rate of change in sodium is 4 - 6mmol/L in 24hr period of time (and not exceed 8mmol/L) (2) Clostridium difficile infection: Code(s): A49.8 - Other bacterial infections of unspecified site Status: Acute Assessment and Plan: as noted by testing in ER on oral vancomycin (3) Hypertension: Code(s): I10 - Essential (primary) hypertension Status: Chronic Assessment and Plan: reasonable control at this time follow trend of hemodynamics (4) Diabetes mellitus: Code(s): E11.9 - Type 2 diabetes mellitus without complications Status: Acute Assessment and Plan: follow accuchecks glycemic control Will continue to follow. Subjective Date/time seen: 11/30/21 12:59 Started on low dose lasix yesterday due to lower extremity edema as well as to help improve sodium level - sodium a bit better by AM labs; still appears somewhat fatigued and tired; no apparent issues overnight or earlier this morning; oral intake continues to fluctuate as well. Exam Narrative: General: WD/WN female in NAD Heart: normal S1 and S2; no rub Lungs: clear to auscultation Abdomen: soft, nontender, nondistended, positive bowel sounds Extremities: no cyanosis or clubbing; trace edema Skin: warm and intact Objective Data Vital Signs Vital Signs: Vital Signs Temp Pulse Resp BP Pulse Ox 11/30/21 08:54 18 98 11/30/21 08:53 76 11/30/21 08:52 76 11/30/21 06:00 37.0 C 70 18 123/50 L 98 11/29/21 22:00 36.6 C 66 18 117/46 L 97 Intake/Output Intake/Output: Intake & Output 11/27/21 11/28/21 11/29/21 11/30/21 23:59 23:59 23:59 23:59 Intake Total 1960 1860 1006 940 Output Total 400 Balance 1959 1460 1006 940 Meds/Results Medications: Active Medications Generic Name Dose Route Start Last Admin Trade Name Freq PRN Reason Stop Dose Admin Acetaminophen/Codeine Phosphate 1 tab 11/26/21 23:05 Acetaminophen/Codeine (*Crx) 300/30 Mg Tablet PO Q6H PRN Pain Rated 4-6 Amiodarone HCl 200 mg 11/27/21 08:00 11/30/21 08:53 Amiodarone Hcl 200 Mg Tablet PO 200 mg DAILY@0800 ICNDY Administration Apixaban 5 mg 11/26/21 23:40 11/30/21 08:53 Apixaban 5 Mg Tablet PO 5 mg Q12HR CINDY Administration Atorvastatin Calcium 40 mg 11/26/21 23:40 11/29/21 20:22 Atorvastatin 40 Mg Tablet PO 40 mg HS CINDY Administration Baclofen 10 mg 11/27/21 09:00 11/30/21 16:52 Baclofen 10 Mg Tablet PO 10 mg BID CINDY Administration Chlorpheniramine Maleate 4 mg 11/26/21 23:05 Chlorpheniramine Maleate 4 Mg Tablet PO Q4H PRN Allergic Symptoms Dextrose 12.5 gm 11/26/21 14:32 Dextrose 50% 25 Gm/50 Ml Syringe IV PUSH PRN PRN Hypoglycemia Protocol Ezetimibe 10 mg 11/27/21 09:00 11/30/21 08:53 Ezetimibe 10 Mg Tablet PO 10 mg DAILY CINDY Administration Ferrous Sulfate 324 mg 11/30/21 17:00 Ferrous Sulfate 324 Mg Tablet PO BIDWM CINDY Furosemide 10 mg 11/30/21 09:00 11/30/21 08:54 Furosemide 10 Mg Tablet PO 10 mg BID CINDY Administration Gabapentin 300 mg 11/27/21 09:00 11/30/21 08:52 Gabapentin 300 Mg Capsule PO 300 mg DAILY CINDY Administration G
[2021-11-30 13:59] LABS: Magnesium 1.7 mg/dL (1.6-2.3)
[2021-11-30 14:55] LABS: Alanine Aminotransferase 20 U/L (6-35); Albumin Level 2.3 g/dL (3.5-5.1); Alkaline Phosphatase 108 U/L (38-126); Anion Gap 5 mmol/L (8-16); Aspartate Amino Transferase 38 U/L (14-36); Bilirubin,Total 0.4 mg/dL (0.2-1.3); Blood Urea Nitrogen 16 mg/dL (7-17); Calcium 7.1 mg/dL (8.4-10.2); Carbon Dioxide 27 mmol/L (22-30); Chloride 94 mmol/L (98-107); Estimated CRCL calculation 37 ml/min; Estimated Glomerular Filt Rate 54; Glucose 194 mg/dL (65-110); Sodium 126 mmol/L (137-145)
[2021-11-30 15:05] LABS: Vitamin B12 > 1000.0 pg/mL (239-931)
[2021-11-30 16:40] LABS: Chloride Rand Ur <20 mmol/L (32-290); Creatinine Random Urine 87 mg/dL (20-275)
[2021-11-30] MEDS: MAGNESIUM SULF 2 GM/WATER 50ML 2 GM/50 ML BAG IVPB (16:52)
[2021-11-30] MEDS: POTASSIUM CHLORIDE 20 MEQ TABLET 40 MEQ PO (16:52)
[2021-11-30] MEDS: FERROUS SULFATE 324 MG TABLET PO (17:01)
[2021-11-30 17:13] LABS: Glucose Point of Care 140 mg/dl (65-105)
[2021-11-30 17:27] LABS: Albumin 2.4 g/dL (3.8-4.8); Alpha 1 Globulin 0.4 g/dL (0.2-0.3); Alpha 2 Globulin 0.6 g/dL (0.5-0.9); Beta 1 Globulin 0.3 g/dL (0.4-0.6); Gamma Globulin 0.7 g/dL (0.8-1.7); Protein, Total 4.6 g/dL (6.1-8.1)
[2021-11-30 17:29] LABS: Folic Acid 10.9 ng/mL (2.76->20)
[2021-11-30] MEDS: INSULIN GLARGINE (*BKC) 100 UNITS/ML 14 UNITS SUB-Q (20:05)
[2021-11-30] MEDS: ATORVASTATIN 40 MG TABLET PO (20:07)
[2021-11-30] MEDS: ONDANSETRON INJ 4 MG/2 ML VIAL IV PUSH (20:07)
[2021-11-30 21:38] LABS: Glucose Point of Care 154 mg/dl (65-105)
[2021-12-01] VITALS (7 sets, daily range): BP systolic 97–127; BP diastolic 39–57; PULSE 60–68; RESP 16–20; TEMP 36.5–37.2; O2SAT 95–99
[2021-12-01] MEDS: VANCOMYCIN ORAL 125 MG/2.5 ML SYRUP PO ×5 (00:51→23:26)
[2021-12-01 01:11] LABS: Glucose Point of Care 57 mg/dl (65-105)
[2021-12-01 02:08] LABS: Glucose Point of Care 81 mg/dl (65-105)
[2021-12-01 08:30] LABS: Basophils Absolute Auto 0.1 K/mm3 (0.0-0.1); Basophils Percent Auto 0.4 % (0.2-1.2); Eosinophils Absolute Auto 0.3 K/mm3 (0-0.3); Eosinophils Percent Auto 1.9 % (0-4.4); Hematocrit 24.4 % (37.0-47.0); Hemoglobin 7.7 g/dL (12.0-15.0); Immature Granulocyte Absolute 0.19 K/mm3 (0.00-0.031); Immature Granulocyte Percent A 1.4 % (0-0.5); Lymphocytes Absolute Auto 1.05 K/mm3 (0.9-3.2); Lymphocytes Percent Auto 7.5 % (18.3-44.2); Mean Corpuscular HGB Conc 31.6 g/dl (32-36); Mean Corpuscular Hemoglobin 32.9 pg (26-34); Mean Corpuscular Volume 104.3 fl (80-100); Mean Platelet Volume 8.7 fl (7.4-10.4); Monocytes Absolute Auto 0.8 K/mm3 (0.1-0.6); Monocytes Percent Auto 5.9 % (2.6-8.5); Neutrophils Absolute Auto 11.6 K/mm3 (1.3-6.7); Neutrophils Percent Auto 82.9 % (45.5-73.1); Platelet Count Result 350 k/mm3 (150-375); Red Blood Count 2.34 M/mm3 (4.2-5.4)
[2021-12-01 08:34] LABS: Glucose Point of Care 102 mg/dl (65-105)
[2021-12-01 08:41] LABS: Alanine Aminotransferase 19 U/L (6-35); Albumin Level 2.2 g/dL (3.5-5.1); Alkaline Phosphatase 114 U/L (38-126); Anion Gap 2 mmol/L (8-16); Aspartate Amino Transferase 35 U/L (14-36); Bilirubin,Total 0.5 mg/dL (0.2-1.3); Blood Urea Nitrogen 15 mg/dL (7-17); Calcium 7.2 mg/dL (8.4-10.2); Carbon Dioxide 29 mmol/L (22-30); Chloride 97 mmol/L (98-107); Estimated CRCL calculation 34 ml/min; Estimated Glomerular Filt Rate 48; Glucose 104 mg/dL (65-110); Magnesium 1.9 mg/dL (1.6-2.3); Potassium 3.6 mmol/L (3.4-5.0); Sodium 128 mmol/L (137-145)
[2021-12-01 08:47] LABS: Vancomycin Trough 9.8 ug/mL (10.0-20.0)
[2021-12-01] MEDS: LOSARTAN POTASSIUM 12.5 MG TABLET PO (09:22)
[2021-12-01] MEDS: SODIUM CHLORIDE 1 GM TABLET PO ×2 (09:22→17:55)
[2021-12-01] MEDS: FERROUS SULFATE 324 MG TABLET PO ×2 (09:22→17:55)
[2021-12-01] MEDS: AMIODARONE HCL 200 MG TABLET PO (09:22)
[2021-12-01] MEDS: METOPROLOL SUCCINATE EXT REL 12.5 MG TABCR PO (09:22)
[2021-12-01] MEDS: EZETIMIBE 10 MG TABLET PO (09:22)
[2021-12-01] MEDS: FUROSEMIDE 10 MG TABLET PO ×2 (09:22→17:54)
[2021-12-01] MEDS: ISOSORBIDE MONONITRATE 30 MG TAB.ER.24H PO (09:22)
[2021-12-01] MEDS: GABAPENTIN 300 MG CAPSULE PO (09:22)
[2021-12-01] MEDS: APIXABAN 5 MG TABLET PO ×2 (09:23→20:39)
[2021-12-01] MEDS: CHLORPHENIRAMINE MALEATE 4 MG TABLET PO (09:23)
[2021-12-01] MEDS: PANTOPRAZOLE 40 MG TABLET PO (09:23)
[2021-12-01] MEDS: BACLOFEN 10 MG TABLET PO ×2 (09:23→17:55)
[2021-12-01] MEDS: INSULIN ASPART (*BKC) 100 UNITS/ML SUB-Q ×2 (09:35→12:27)
--- NOTE | 2021-12-01 11:40 | P.PNNP_ITS ---
Progress Note: A&P Assessment and Plan (1) Hyponatremia: Code(s): E87.1 - Hypo-osmolality and hyponatremia Status: Acute Assessment and Plan: * presumably acute * suspect initially due to volume depletion given GI symptoms (nausea/vomiting/diarrhea) * however, issues with pain, use of narcotics, and use of PPI may be playing a role * evaluation to date: * TSH elevated but free T4 okay * cortisol okay * SPEP/serum immunofixation negatve; UPEP/urine immunofixation pending * recent urine electrolytes suggest pre-renal azotemia * normal saline IVFs did not really improve sodium level * on salt tablets * added low dose lasix but will have to be careful this does result in volume depletion; received IV lasix yesterday as well * follow serial sodium levels * goal rate of change in sodium is 4 - 6mmol/L in 24hr period of time (and not exceed 8mmol/L) (2) Clostridium difficile infection: Code(s): A49.8 - Other bacterial infections of unspecified site Status: Acute Assessment and Plan: * as noted by testing in ER * on oral vancomycin (3) Hypertension: Code(s): I10 - Essential (primary) hypertension Status: Chronic Assessment and Plan: * reasonable control at this time * follow trend of hemodynamics (4) Diabetes mellitus: Code(s): E11.9 - Type 2 diabetes mellitus without complications Status: Acute Assessment and Plan: * follow accuchecks * glycemic control Will continue to follow. Subjective Date/time seen: 12/01/21 11:40 Still have loose bowel movements but improved in comparison to admission; sodium level appears to be slowly improving; despite diuretic therapy, does not feels her lower extremity edema is really any better (but not really any worse, either); no issues/events overnight or earlier this AM. Exam Narrative: General: WD/WN female in NAD Heart: normal S1 and S2; no rub Lungs: clear to auscultation Abdomen: soft, nontender, nondistended, positive bowel sounds Extremities: no cyanosis or clubbing; trace edema Skin: no rash Objective Data Vital Signs Vital Signs: Vital Signs Temp Pulse Resp BP Pulse Ox 12/01/21 09:22 64 12/01/21 05:54 36.5 C 60 16 111/41 L 97 11/30/21 22:00 37.1 C 60 16 126/45 L 98 11/30/21 21:25 98 11/30/21 14:00 37.3 C 61 16 105/41 L 97 Intake/Output Intake/Output: Intake & Output 11/28/21 11/29/21 11/30/21 12/01/21 23:59 23:59 23:59 23:59 Intake Total 1860 1006 1590 240 Output Total 400 800 Balance 1460 1006 790 240 Meds/Results Medications: Active Medications Generic Name Dose Route Start Last Admin Trade Name Freq PRN Reason Stop Dose Admin Acetaminophen/Codeine Phosphate 1 tab 11/26/21 23:05 Acetaminophen/Codeine (*Crx) 300/30 Mg Tablet PO Q6H PRN Pain Rated 4-6 Amiodarone HCl 200 mg 11/27/21 08:00 12/01/21 09:22 Amiodarone Hcl 200 Mg Tablet PO 200 mg DAILY@0800 CINDY Administration Apixaban 5 mg 11/26/21 23:40 12/01/21 09:23 Apixaban 5 Mg Tablet PO 5 mg Q12HR CINDY Administration Atorvastatin Calcium 40 mg 11/26/21 23:40 11/30/21 20:07 Atorvastatin 40 Mg Tablet PO 4
--- NOTE | 2021-12-01 11:40 | PM.PNNEP ---
Progress Note: A&P Assessment and Plan (1) Hyponatremia: Code(s): E87.1 - Hypo-osmolality and hyponatremia Status: Acute Assessment and Plan: presumably acute suspect initially due to volume depletion given GI symptoms (nausea/vomiting/diarrhea) however, issues with pain, use of narcotics, and use of PPI may be playing a role evaluation to date: TSH elevated but free T4 okay cortisol okay SPEP/serum immunofixation negatve; UPEP/urine immunofixation pending recent urine electrolytes suggest pre-renal azotemia normal saline IVFs did not really improve sodium level on salt tablets added low dose lasix but will have to be careful this does result in volume depletion; received IV lasix yesterday as well follow serial sodium levels goal rate of change in sodium is 4 - 6mmol/L in 24hr period of time (and not exceed 8mmol/L) (2) Clostridium difficile infection: Code(s): A49.8 - Other bacterial infections of unspecified site Status: Acute Assessment and Plan: as noted by testing in ER on oral vancomycin (3) Hypertension: Code(s): I10 - Essential (primary) hypertension Status: Chronic Assessment and Plan: reasonable control at this time follow trend of hemodynamics (4) Diabetes mellitus: Code(s): E11.9 - Type 2 diabetes mellitus without complications Status: Acute Assessment and Plan: follow accuchecks glycemic control Will continue to follow. Subjective Date/time seen: 12/01/21 11:40 Still have loose bowel movements but improved in comparison to admission; sodium level appears to be slowly improving; despite diuretic therapy, does not feels her lower extremity edema is really any better (but not really any worse, either); no issues/events overnight or earlier this AM. Exam Narrative: General: WD/WN female in NAD Heart: normal S1 and S2; no rub Lungs: clear to auscultation Abdomen: soft, nontender, nondistended, positive bowel sounds Extremities: no cyanosis or clubbing; trace edema Skin: no rash Objective Data Vital Signs Vital Signs: Vital Signs Temp Pulse Resp BP Pulse Ox 12/01/21 09:22 64 12/01/21 05:54 36.5 C 60 16 111/41 L 97 11/30/21 22:00 37.1 C 60 16 126/45 L 98 11/30/21 21:25 98 05/12/22 14:00 37.3 C 61 16 105/41 L 97 Intake/Output Intake/Output: Intake & Output 11/28/21 11/29/21 11/30/21 12/01/21 23:59 23:59 23:59 23:59 Intake Total 1860 1006 1590 240 Output Total 400 800 Balance 1460 1006 790 240 Meds/Results Medications: Active Medications Generic Name Dose Route Start Last Admin Trade Name Freq PRN Reason Stop Dose Admin Acetaminophen/Codeine Phosphate 1 tab 11/26/21 23:05 Acetaminophen/Codeine (*Crx) 300/30 Mg Tablet PO Q6H PRN Pain Rated 4-6 Amiodarone HCl 200 mg 11/27/21 08:00 12/01/21 09:22 Amiodarone Hcl 200 Mg Tablet PO 200 mg DAILY@0800 CINDY Administration Apixaban 5 mg 11/26/21 23:40 12/01/21 09:23 Apixaban 5 Mg Tablet PO 5 mg Q12HR CINDY Administration Atorvastatin Calcium 40 mg 11/26/21 23:40 11/30/21 20:07 Atorvastatin 40 Mg Tablet PO 40 mg HS CINDY Administration Baclofen 10 mg 11/27/21 09:00 12/01/21 09:23 Baclofen 10 Mg Tablet PO 10 mg BID CINDY Administration Chlorpheniramine Maleate 4 mg 11/26/21 23:05 12/01/21 09:23 Chlorpheniramine Maleate 4 Mg Tablet PO 4 mg Q4H PRN Administration Allergic Symptoms Dextrose 12.5 gm 11/26/21 14:32 Dextrose 50% 25 Gm/50 Ml Syringe IV PUSH PRN PRN Hypoglycemia Protocol Ezetimibe 10 mg 11/27/21 09:00 12/01/21 09:22 Ezetimibe 10 Mg Tablet PO 10 mg DAILY CINDY Administration Ferrous Sulfate 324 mg 11/30/21 17:00 12/01/21 09:22 Ferrous Sulfate 324 Mg Tablet PO 324 mg BIDWM CINDY Administration Furosemide 10 mg 11/30/21 09:00 12/01/21 09:22 Furosemide 10 Mg Tablet PO 10
[2021-12-01 12:40] LABS: Glucose Point of Care 135 mg/dl (65-105)
--- NOTE | 2021-12-01 13:16 | P.PNIM_ITS ---
Progress Note: A&P Assessment and Plan (1) Clostridium difficile infection: Code(s): A49.8 - Other bacterial infections of unspecified site Status: Acute Assessment and Plan: Patient presented with diarrhea * C diff PCR positive on 11/26/2021 * May be due to recent antibiotic use following hip replacement * Continue p.o. vancomycin day #6 * Probiotics and banatrol dietary supplement * Monitor volume status closely * WBC trending down. Patient remains afebrile. (2) Hyponatremia: Code(s): E87.1 - Hypo-osmolality and hyponatremia Status: Acute Assessment and Plan: Sodium has been low this admission, no prior labs available for comparison * Levels decline to 120 * Appreciate nephrology consultation * Sodium improving at appropriate rate. One hundred twenty-eight this morning * Continue with sodium chloride tabs 1 g b.i.d. * Fluid restriction diet 1200 ml daily * Monitor sodium levels close * Suspect related to volume depletion in light of diarrhea * TSH slightly elevated with normal T4, cortisol (3) Type 1 diabetes mellitus: Code(s): E10.9 - Type 1 diabetes mellitus without complications Status: Acute Assessment and Plan: Patient reports history of type 1 diabetes for 50+ years * Typically managed with insulin pump * She would like to resume insulin pump. RN to complete insulin pump for agreement * A1c is 6.2 * Sugars have been controlled during admission. She did have an episode of hypoglycemia late last night with glucose 57. * Discontinue Lantus * Continue with accuchecks and hypoglycemic protocol. (4) Hypertension: Code(s): I10 - Essential (primary) hypertension Status: Chronic Assessment and Plan: Blood pressures reviewed and have been on the low end of normal. Last BP 111/41 * Continue home regimen including Imdur, losartan, metoprolol * Cold antihypertensives if systolic BP <100 * Monitor blood pressure trends * Check orthostatics (5) Afib: Code(s): I48.91 - Unspecified atrial fibrillation Status: Acute Assessment and Plan: Rate is controlled * Continue amiodarone 200mg PO daily, Eliquis, and metoprolol 12.5mg PO daily (6) UTI (urinary tract infection): Code(s): N39.0 - Urinary tract infection, site not specified Status: Acute Assessment and Plan: UA was abnormal on presentation * Urine culture with growth of 50-100k Enterococcus and 10-49k Morganella morganii * She has been on IV Vancomycin for Enterococcus UTI. Will change to Ampicillin to narrow coverage * Received 3 days of IV Ceftriaxone for Morganella. At this time will discontinue given low colony count. (7) Anemia: Code(s): D64.9 - Anemia, unspecified Status: Acute Assessment and Plan: Macrocytic. H&H has remained low during hospitalization but stable * Hemoglobin 7.7 today * B12 is >1000, folate is within normal limits * Iron stores are low. Continue p.o. iron supplementation * Continue to monitor H&H * No evidence of GI bleeding Subjective Date/time seen: 12/01/21 13:16 Interval history: Date of service: 12/01/2021 Jil Rowan is a 76-year-old female with a history of atrial fibrillation on chronic anticoagulation, type 1 diabetes mellitus, hypertension, hyperlipidemia who is seen in follow-up for C diff colitis and urinary tract infection. She is very concerned today regarding her blood sugar management. She states her blood sugars have been running low and she is not tole
--- NOTE | 2021-12-01 13:16 | PM.IMPN ---
Progress Note: A&P Assessment and Plan (1) Clostridium difficile infection: Code(s): A49.8 - Other bacterial infections of unspecified site Status: Acute Assessment and Plan: Patient presented with diarrhea C diff PCR positive on 11/26/2021 May be due to recent antibiotic use following hip replacement Continue p.o. vancomycin day #6 Probiotics and banatrol dietary supplement Monitor volume status closely WBC trending down. Patient remains afebrile. (2) Hyponatremia: Code(s): E87.1 - Hypo-osmolality and hyponatremia Status: Acute Assessment and Plan: Sodium has been low this admission, no prior labs available for comparison Levels decline to 120 Appreciate nephrology consultation Sodium improving at appropriate rate. One hundred twenty-eight this morning Continue with sodium chloride tabs 1 g b.i.d. Fluid restriction diet 1200 ml daily Monitor sodium levels close Suspect related to volume depletion in light of diarrhea TSH slightly elevated with normal T4, cortisol (3) Type 1 diabetes mellitus: Code(s): E10.9 - Type 1 diabetes mellitus without complications Status: Acute Assessment and Plan: Patient reports history of type 1 diabetes for 50+ years Typically managed with insulin pump She would like to resume insulin pump. RN to complete insulin pump for agreement A1c is 6.2 Sugars have been controlled during admission. She did have an episode of hypoglycemia late last night with glucose 57. Discontinue Lantus Continue with accuchecks and hypoglycemic protocol. (4) Hypertension: Code(s): I10 - Essential (primary) hypertension Status: Chronic Assessment and Plan: Blood pressures reviewed and have been on the low end of normal. Last BP 111/41 Continue home regimen including Imdur, losartan, metoprolol Cold antihypertensives if systolic BP <100 Monitor blood pressure trends Check orthostatics (5) Afib: Code(s): I48.91 - Unspecified atrial fibrillation Status: Acute Assessment and Plan: Rate is controlled Continue amiodarone 200mg PO daily, Eliquis, and metoprolol 12.5mg PO daily (6) UTI (urinary tract infection): Code(s): N39.0 - Urinary tract infection, site not specified Status: Acute Assessment and Plan: UA was abnormal on presentation Urine culture with growth of 50-100k Enterococcus and 10-49k Morganella morganii She has been on IV Vancomycin for Enterococcus UTI. Will change to Ampicillin to narrow coverage Received 3 days of IV Ceftriaxone for Morganella. At this time will discontinue given low colony count. (7) Anemia: Code(s): D64.9 - Anemia, unspecified Status: Acute Assessment and Plan: Macrocytic. H&H has remained low during hospitalization but stable Hemoglobin 7.7 today B12 is >1000, folate is within normal limits Iron stores are low. Continue p.o. iron supplementation Continue to monitor H&H No evidence of GI bleeding Subjective Date/time seen: 12/01/21 13:16 Interval history: Date of service: 12/01/2021 Jil Rowan is a 76-year-old female with a history of atrial fibrillation on chronic anticoagulation, type 1 diabetes mellitus, hypertension, hyperlipidemia who is seen in follow-up for C diff colitis and urinary tract infection. She is very concerned today regarding her blood sugar management. She states her blood sugars have been running low and she is not tolerating the long acting insulin. She would like to go back to using her insulin pump and managing her blood sugars as she typically does. Additionally, she complains of lightheadedness at rest and she does feel dizzy when she is sitting in as if the room is spinning around her. She also endorses abdominal cramping any time she eats. She has very decreased appetite and has not been tolerating much her diet. Reports 5 loose stools today that she describe
[2021-12-01] MEDS: SACCHAROMYCES BOULARDII 250 MG CAPSULE PO (17:54)
[2021-12-01] MEDS: AMPICILLIN TRIHYDRATE 500 MG CAPSULE PO ×2 (17:54→23:26)
[2021-12-01] MEDS: ATORVASTATIN 40 MG TABLET PO (20:39)
[2021-12-01 20:48] LABS: Glucose Point of Care 69 mg/dl (65-105)
[2021-12-02] VITALS (7 sets, daily range): BP systolic 82–128; BP diastolic 37–54; PULSE 60–64; RESP 16–22; TEMP 36.5–37; O2SAT 98
[2021-12-02] MEDS: AMPICILLIN TRIHYDRATE 500 MG CAPSULE PO ×4 (04:53→23:45)
[2021-12-02] MEDS: VANCOMYCIN ORAL 125 MG/2.5 ML SYRUP PO ×4 (04:53→23:45)
--- NOTE | 2021-12-02 06:29 | PC.NURSE ---
204 accucheck 69, snack given, tolerated well.
[2021-12-02 07:37] LABS: Hematocrit 24.8 % (37.0-47.0); Hemoglobin 7.9 g/dL (12.0-15.0); Mean Corpuscular HGB Conc 31.9 g/dl (32-36); Mean Corpuscular Hemoglobin 34.1 pg (26-34); Mean Corpuscular Volume 106.9 fl (80-100); Mean Platelet Volume 8.9 fl (7.4-10.4); Platelet Count Result 356 k/mm3 (150-375); Red Blood Count 2.32 M/mm3 (4.2-5.4); White Blood Count 11.6 K/mm3 (4.5-10.0)
[2021-12-02 07:58] LABS: Anion Gap 2 mmol/L (8-16); Blood Urea Nitrogen 16 mg/dL (7-17); Calcium 7.2 mg/dL (8.4-10.2); Carbon Dioxide 26 mmol/L (22-30); Chloride 100 mmol/L (98-107); Estimated CRCL calculation 34 ml/min; Estimated Glomerular Filt Rate 48; Glucose 113 mg/dL (65-110); Magnesium 1.9 mg/dL (1.6-2.3); Potassium 3.8 mmol/L (3.4-5.0); Sodium 128 mmol/L (137-145)
[2021-12-02] MEDS: EZETIMIBE 10 MG TABLET PO (08:06)
[2021-12-02] MEDS: METOPROLOL SUCCINATE EXT REL 12.5 MG TABCR PO (08:06)
[2021-12-02] MEDS: ISOSORBIDE MONONITRATE 30 MG TAB.ER.24H PO (08:06)
[2021-12-02] MEDS: FERROUS SULFATE 324 MG TABLET PO ×2 (08:06→17:30)
[2021-12-02] MEDS: GABAPENTIN 300 MG CAPSULE PO (08:06)
[2021-12-02] MEDS: FUROSEMIDE 10 MG TABLET PO ×2 (08:06→17:30)
[2021-12-02] MEDS: SACCHAROMYCES BOULARDII 250 MG CAPSULE PO ×2 (08:06→17:30)
[2021-12-02] MEDS: BACLOFEN 10 MG TABLET PO ×2 (08:07→17:30)
[2021-12-02] MEDS: AMIODARONE HCL 200 MG TABLET PO (08:07)
[2021-12-02] MEDS: LOSARTAN POTASSIUM 12.5 MG TABLET PO (08:07)
[2021-12-02] MEDS: APIXABAN 5 MG TABLET PO ×2 (08:07→20:51)
[2021-12-02] MEDS: PANTOPRAZOLE 40 MG TABLET PO (08:07)
[2021-12-02] MEDS: SODIUM CHLORIDE 1 GM TABLET PO ×2 (08:08→17:30)
--- NOTE | 2021-12-02 10:53 | PM.PNNEP ---
Progress Note: A&P Assessment and Plan (1) Hyponatremia: Code(s): E87.1 - Hypo-osmolality and hyponatremia Status: Acute Assessment and Plan: slow improvement presumably acute suspect initially due to volume depletion given GI symptoms (nausea/vomiting/diarrhea) however, issues with pain, use of narcotics, and use of PPI may be playing a role evaluation to date: TSH elevated but free T4 okay cortisol okay SPEP/serum immunofixation negatve; UPEP/urine immunofixation pending recent urine electrolytes suggest pre-renal azotemia normal saline IVFs did not really improve sodium level on salt tablets, fluid restriction, and low dose lasix will have to be careful that lasix does result in volume depletion follow serial sodium levels goal rate of change in sodium is 4 - 6mmol/L in 24hr period of time (and not exceed 8mmol/L) (2) Clostridium difficile infection: Code(s): A49.8 - Other bacterial infections of unspecified site Status: Acute Assessment and Plan: as noted by testing in ER on oral vancomycin (3) Hypertension: Code(s): I10 - Essential (primary) hypertension Status: Chronic Assessment and Plan: reasonable control at this time follow trend of hemodynamics (4) Diabetes mellitus: Code(s): E11.9 - Type 2 diabetes mellitus without complications Status: Acute Assessment and Plan: follow accuchecks glycemic control Will continue to follow. Subjective Date/time seen: 12/02/21 10:53 Still having some loose stool but seems more concerned about her lower extremity swelling/edema in spite of diuretic therapy that has been instituted (although her diuretics are being used to correct her sodium level); no other acute distress noted. Exam Narrative: General: WD/WN female in NAD Heart: normal S1 and S2; no rub Lungs: clear to auscultation Abdomen: soft, nontender, nondistended, positive bowel sounds Extremities: no cyanosis or clubbing; trace edema Skin: no rash Objective Data Vital Signs Vital Signs: Vital Signs Temp Pulse Resp BP Pulse Ox 12/02/21 08:25 60 12/02/21 08:24 88 12/02/21 08:00 36.6 C 60 22 H 131/54 L 97 12/02/21 06:00 36.6 C 60 22 H 131/54 L 97 12/01/21 22:00 36.6 C 61 22 H 117/50 L 98 12/01/21 20:00 64 16 98 12/01/21 14:00 37.0 C 64 16 118/44 L 98 Intake/Output Intake/Output: Intake & Output 11/30/21 12/01/21 12/02/21 12/03/21 23:59 23:59 23:59 23:59 Intake Total 1590 1020 660 360 Output Total 800 3 Balance 790 1020 657 360 Meds/Results Medications: Active Medications Generic Name Dose Route Start Last Admin Trade Name Freq PRN Reason Stop Dose Admin Acetaminophen/Codeine Phosphate 1 tab 11/26/21 23:05 Acetaminophen/Codeine (*Crx) 300/30 Mg Tablet PO Q6H PRN Pain Rated 4-6 Amiodarone HCl 200 mg 11/27/21 08:00 12/03/21 08:24 Amiodarone Hcl 200 Mg Tablet PO 200 mg DAILY@0800 CINDY Administration Ampicillin 500 mg 12/01/21 18:00 12/03/21 05:03 Ampicillin Trihydrate 500 Mg Capsule PO 500 mg Q6HR CINDY Administration Apixaban 5 mg 11/26/21 23:40 12/03/21 08:24 Apixaban 5 Mg Tablet PO 5 mg Q12HR CINDY Administration Atorvastatin Calcium 40 mg 11/26/21 23:40 12/02/21 20:51 Atorvastatin 40 Mg Tablet PO 40 mg HS CINDY Administration Baclofen 10 mg 11/27/21 09:00 12/03/21 08:25 Baclofen 10 Mg Tablet PO 10 mg BID CINDY Administration Chlorpheniramine Maleate 4 mg 11/26/21 23:05 12/01/21 09:23 Chlorpheniramine Maleate 4 Mg Tablet PO 4 mg Q4H PRN Administration Allergic Symptoms Dextrose 12.5 gm 11/26/21 14:32 Dextrose 50% 25 Gm/50 Ml Syringe IV PUSH PRN PRN Hypoglycemia Protocol Ezetimibe 10 mg 11/27/21 09:00 12/03/21 08:25 Ezetimibe 10 Mg Tablet PO 10 mg DAILY CINDY Administration Ferrous Sulfate 324 mg 11/30/21 17:00 05
--- NOTE | 2021-12-02 10:53 | P.PNNP_ITS ---
Progress Note: A&P Assessment and Plan (1) Hyponatremia: Code(s): E87.1 - Hypo-osmolality and hyponatremia Status: Acute Assessment and Plan: * slow improvement * presumably acute * suspect initially due to volume depletion given GI symptoms (nausea/vomiting/diarrhea) * however, issues with pain, use of narcotics, and use of PPI may be playing a role * evaluation to date: * TSH elevated but free T4 okay * cortisol okay * SPEP/serum immunofixation negatve; UPEP/urine immunofixation pending * recent urine electrolytes suggest pre-renal azotemia * normal saline IVFs did not really improve sodium level * on salt tablets, fluid restriction, and low dose lasix * will have to be careful that lasix does result in volume depletion * follow serial sodium levels * goal rate of change in sodium is 4 - 6mmol/L in 24hr period of time (and not exceed 8mmol/L) (2) Clostridium difficile infection: Code(s): A49.8 - Other bacterial infections of unspecified site Status: Acute Assessment and Plan: * as noted by testing in ER * on oral vancomycin (3) Hypertension: Code(s): I10 - Essential (primary) hypertension Status: Chronic Assessment and Plan: * reasonable control at this time * follow trend of hemodynamics (4) Diabetes mellitus: Code(s): E11.9 - Type 2 diabetes mellitus without complications Status: Acute Assessment and Plan: * follow accuchecks * glycemic control Will continue to follow. Subjective Date/time seen: 12/02/21 10:53 Still having some loose stool but seems more concerned about her lower extremity swelling/edema in spite of diuretic therapy that has been instituted (although her diuretics are being used to correct her sodium level); no other acute distress noted. Exam Narrative: General: WD/WN female in NAD Heart: normal S1 and S2; no rub Lungs: clear to auscultation Abdomen: soft, nontender, nondistended, positive bowel sounds Extremities: no cyanosis or clubbing; trace edema Skin: no rash Objective Data Vital Signs Vital Signs: Vital Signs Temp Pulse Resp BP Pulse Ox 12/02/21 08:25 60 12/02/21 08:24 88 12/02/21 08:00 36.6 C 60 22 H 131/54 L 97 12/02/21 06:00 36.6 C 60 22 H 131/54 L 97 12/01/21 22:00 36.6 C 61 22 H 117/50 L 98 12/01/21 20:00 64 16 98 12/01/21 14:00 37.0 C 64 16 118/44 L 98 Intake/Output Intake/Output: Intake & Output 11/30/21 12/01/21 12/02/21 12/03/21 23:59 23:59 23:59 23:59 Intake Total 1590 1020 660 360 Output Total 800 3 Balance 790 1020 657 360 Meds/Results Medications: Active Medications Generic Name Dose Route Start Last Admin Trade Name Freq PRN Reason Stop Dose Admin Acetaminophen/Codeine Phosphate 1 tab 11/26/21 23:05 Acetaminophen/Codeine (*Crx) 300/30 Mg Tablet PO Q6H PRN Pain Rated 4-6 Amiodarone HCl 200 mg 11/27/21 08:00 12/03/21 08:24 Amiodarone Hcl 200 Mg Tablet PO 200 mg DAILY@0800 CINDY Administration Ampicillin 500 mg 12/01/21 18:00 12/03/21 05:03 Ampicillin Trihydrate 500 Mg Capsule PO 500 mg Q6HR CINDY Administration Apixaban 5 mg
--- NOTE | 2021-12-02 12:20 | PC.NURSE ---
blood sugar 149 per patient's monitor. blood sugar was 130 this morning per patient
--- NOTE | 2021-12-02 12:36 | P.PNIM_ITS ---
Progress Note: A&P Assessment and Plan (1) Clostridium difficile infection: Code(s): A49.8 - Other bacterial infections of unspecified site Status: Acute Assessment and Plan: Patient presented with diarrhea * C diff PCR positive on 11/26/2021 * May be due to recent antibiotic use following hip replacement * Continue p.o. vancomycin day #7 * Probiotics and banatrol dietary supplement * Monitor volume status closely * WBC trending down. Patient remains afebrile. (2) Hyponatremia: Code(s): E87.1 - Hypo-osmolality and hyponatremia Status: Acute Assessment and Plan: Sodium has been low this admission, no prior labs available for comparison * Appreciate nephrology consultation * Sodium improving at appropriate rate. Remaining stable at 128. * Continue with sodium chloride tabs 1 g b.i.d. * Fluid restriction diet - increase allowance to 1800 ml daily * Monitor sodium levels closely * TSH slightly elevated with normal T4, cortisol (3) Type 1 diabetes mellitus: Code(s): E10.9 - Type 1 diabetes mellitus without complications Status: Acute Assessment and Plan: Patient reports history of type 1 diabetes for 50+ years * A1c is 6.2 * Continue insulin pump. Patient managing and sugars are well controlled * Continue with accuchecks and hypoglycemic protocol. (4) Hypertension: Code(s): I10 - Essential (primary) hypertension Status: Chronic Assessment and Plan: Blood pressures reviewed and have been on the low end of normal. Last BP 128/54. * Per RN patient had episode of hypotension today with SBP in the 80s * Hold home losartan. Continue low dose metoprolol for rate control * Monitor blood pressure trends * Check orthostatics. Monitor qShift (5) Afib: Code(s): I48.91 - Unspecified atrial fibrillation Status: Acute Assessment and Plan: Rate is controlled * Continue amiodarone 200mg PO daily, Eliquis, and metoprolol 12.5mg PO daily (6) UTI (urinary tract infection): Code(s): N39.0 - Urinary tract infection, site not specified Status: Acute Assessment and Plan: UA was abnormal on presentation * Urine culture with growth of 50-100k Enterococcus and 10-49k Morganella morganii * Continue ampicillin for narrowed treatment of enterococcus. Previously on Vancomycin 11/28-12/01/21. * Received 3 days of IV Ceftriaxone for Morganella. Ceftriaxone discontinued 12/01 given low colony count. (7) Anemia: Code(s): D64.9 - Anemia, unspecified Status: Acute Assessment and Plan: Macrocytic. H&H has remained low during hospitalization but stable * Hemoglobin 7.7 today * B12 is >1000, folate is within normal limits * Iron stores are low. Continue p.o. iron supplementation * Continue to monitor H&H * No evidence of GI bleeding (8) Lower extremity edema: Code(s): R60.0 - Localized edema Status: Acute Assessment and Plan: 2+ lower extremity edema * Bilateral venous Doppler to evaluate DVT * Elevate extremities * Encourage ambulation (9) Dysphagia: Code(s): R13.10 - Dysphagia, unspecified Status: Acute Assessment and Plan: Patient endorses intermittent dysphagia * Evaluated by speech therapy on 11/28. * No dietary modifications. She was educated on safe swallow technique (10) Urinary dribbling: Code(s): N39.43 - Post-void dribbling Status: Acute Assessment and Plan: Patient end
--- NOTE | 2021-12-02 12:36 | PM.IMPN ---
Progress Note: A&P Assessment and Plan (1) Clostridium difficile infection: Code(s): A49.8 - Other bacterial infections of unspecified site Status: Acute Assessment and Plan: Patient presented with diarrhea C diff PCR positive on 11/26/2021 May be due to recent antibiotic use following hip replacement Continue p.o. vancomycin day #7 Probiotics and banatrol dietary supplement Monitor volume status closely WBC trending down. Patient remains afebrile. (2) Hyponatremia: Code(s): E87.1 - Hypo-osmolality and hyponatremia Status: Acute Assessment and Plan: Sodium has been low this admission, no prior labs available for comparison Appreciate nephrology consultation Sodium improving at appropriate rate. Remaining stable at 128. Continue with sodium chloride tabs 1 g b.i.d. Fluid restriction diet - increase allowance to 1800 ml daily Monitor sodium levels closely TSH slightly elevated with normal T4, cortisol (3) Type 1 diabetes mellitus: Code(s): E10.9 - Type 1 diabetes mellitus without complications Status: Acute Assessment and Plan: Patient reports history of type 1 diabetes for 50+ years A1c is 6.2 Continue insulin pump. Patient managing and sugars are well controlled Continue with accuchecks and hypoglycemic protocol. (4) Hypertension: Code(s): I10 - Essential (primary) hypertension Status: Chronic Assessment and Plan: Blood pressures reviewed and have been on the low end of normal. Last BP 128/54. Per RN patient had episode of hypotension today with SBP in the 80s Hold home losartan. Continue low dose metoprolol for rate control Monitor blood pressure trends Check orthostatics. Monitor qShift (5) Afib: Code(s): I48.91 - Unspecified atrial fibrillation Status: Acute Assessment and Plan: Rate is controlled Continue amiodarone 200mg PO daily, Eliquis, and metoprolol 12.5mg PO daily (6) UTI (urinary tract infection): Code(s): N39.0 - Urinary tract infection, site not specified Status: Acute Assessment and Plan: UA was abnormal on presentation Urine culture with growth of 50-100k Enterococcus and 10-49k Morganella morganii Continue ampicillin for narrowed treatment of enterococcus. Previously on Vancomycin 11/28-12/01/21. Received 3 days of IV Ceftriaxone for Morganella. Ceftriaxone discontinued 12/01 given low colony count. (7) Anemia: Code(s): D64.9 - Anemia, unspecified Status: Acute Assessment and Plan: Macrocytic. H&H has remained low during hospitalization but stable Hemoglobin 7.7 today B12 is >1000, folate is within normal limits Iron stores are low. Continue p.o. iron supplementation Continue to monitor H&H No evidence of GI bleeding (8) Lower extremity edema: Code(s): R60.0 - Localized edema Status: Acute Assessment and Plan: 2+ lower extremity edema Bilateral venous Doppler to evaluate DVT Elevate extremities Encourage ambulation (9) Dysphagia: Code(s): R13.10 - Dysphagia, unspecified Status: Acute Assessment and Plan: Patient endorses intermittent dysphagia Evaluated by speech therapy on 11/28. No dietary modifications. She was educated on safe swallow technique (10) Urinary dribbling: Code(s): N39.43 - Post-void dribbling Status: Acute Assessment and Plan: Patient endorses dribbling and feeling the need to ?push out? urine Obtain postvoid residual bladder scan Monitor urine output Proceed with catheterization if evidence of retention Subjective Date/time seen: 12/02/21 12:36 Interval history: Date of service: 12/01/2021 Jil Rowan is a 76-year-old female with a history of atrial fibrillation on chronic anticoagulation, type 1 diabetes mellitus, hypertension, hyperlipidemia who is seen in follow-up for C diff colitis and urinary tract i
--- NOTE | 2021-12-02 14:04 | PC.NURSE ---
patient to ultrasound per stretcher
--- NOTE | 2021-12-02 17:28 | PC.NURSE ---
blood sugar 170
[2021-12-02] MEDS: ATORVASTATIN 40 MG TABLET PO (20:51)
[2021-12-02] MEDS: ONDANSETRON HCL ODT 4 MG TABLET PO (21:04)
[2021-12-03] VITALS (12 sets, daily range): BP systolic 93–131; BP diastolic 36–68; PULSE 60–88; RESP 16–22; TEMP 36.6–36.9; O2SAT 95–97
[2021-12-03] MEDS: AMPICILLIN TRIHYDRATE 500 MG CAPSULE PO ×3 (05:03→17:08)
[2021-12-03] MEDS: VANCOMYCIN ORAL 125 MG/2.5 ML SYRUP PO ×3 (05:04→17:09)
[2021-12-03 07:11] LABS: Hematocrit 24.3 % (37.0-47.0); Hemoglobin 7.9 g/dL (12.0-15.0); Mean Corpuscular HGB Conc 32.5 g/dl (32-36); Mean Corpuscular Hemoglobin 33.2 pg (26-34); Mean Corpuscular Volume 102.1 fl (80-100); Mean Platelet Volume 8.9 fl (7.4-10.4); Platelet Count Result 383 k/mm3 (150-375); Red Blood Count 2.38 M/mm3 (4.2-5.4); Red Cell Distribution Width 14.6 % (11.5-14.5); White Blood Count 11.8 K/mm3 (4.5-10.0)
[2021-12-03 07:25] LABS: Anion Gap 2 mmol/L (8-16); Blood Urea Nitrogen 17 mg/dL (7-17); Calcium 7.4 mg/dL (8.4-10.2); Carbon Dioxide 30 mmol/L (22-30); Chloride 98 mmol/L (98-107); Estimated CRCL calculation 34 ml/min; Estimated Glomerular Filt Rate 48; Glucose 130 mg/dL (65-110); Potassium 3.7 mmol/L (3.4-5.0); Sodium 130 mmol/L (137-145)
[2021-12-03 08:05] LABS: Albumin Level 2.2 g/dL (3.5-5.1)
[2021-12-03] MEDS: FERROUS SULFATE 324 MG TABLET PO ×2 (08:22→16:15)
[2021-12-03] MEDS: SACCHAROMYCES BOULARDII 250 MG CAPSULE PO ×2 (08:22→16:15)
[2021-12-03] MEDS: APIXABAN 5 MG TABLET PO ×2 (08:24→16:17)
[2021-12-03] MEDS: AMIODARONE HCL 200 MG TABLET PO (08:24)
[2021-12-03] MEDS: GABAPENTIN 300 MG CAPSULE PO (08:25)
[2021-12-03] MEDS: SODIUM CHLORIDE 1 GM TABLET PO ×2 (08:25→16:15)
[2021-12-03] MEDS: METOPROLOL SUCCINATE EXT REL 12.5 MG TABCR PO (08:25)
[2021-12-03] MEDS: PANTOPRAZOLE 40 MG TABLET PO (08:25)
[2021-12-03] MEDS: ISOSORBIDE MONONITRATE 30 MG TAB.ER.24H PO (08:25)
[2021-12-03] MEDS: BACLOFEN 10 MG TABLET PO (08:25)
[2021-12-03] MEDS: FUROSEMIDE 10 MG TABLET PO ×2 (08:25→16:15)
[2021-12-03] MEDS: EZETIMIBE 10 MG TABLET PO (08:25)
--- NOTE | 2021-12-03 11:53 | P.PNNP_ITS ---
Progress Note: A&P Assessment and Plan (1) Hyponatremia: Code(s): E87.1 - Hypo-osmolality and hyponatremia Status: Acute Assessment and Plan: * slow improvement * presumably acute * suspect initially due to volume depletion given GI symptoms (nausea/vomiting/diarrhea) * however, issues with pain, use of narcotics, and use of PPI may be playing a role * evaluation to date: * TSH elevated but free T4 okay * cortisol okay * SPEP/serum immunofixation negatve; UPEP/urine immunofixation pending * recent urine electrolytes suggest pre-renal azotemia * normal saline IVFs did not really improve sodium level * on salt tablets, fluid restriction, and low dose lasix * will have to be careful that lasix does result in volume depletion * follow serial sodium levels * goal rate of change in sodium is 4 - 6mmol/L in 24hr period of time (and not exceed 8mmol/L) (2) Clostridium difficile infection: Code(s): A49.8 - Other bacterial infections of unspecified site Status: Acute Assessment and Plan: * as noted by testing in ER * on oral vancomycin (3) Hypertension: Code(s): I10 - Essential (primary) hypertension Status: Chronic Assessment and Plan: * reasonable control at this time * follow trend of hemodynamics (4) Diabetes mellitus: Code(s): E11.9 - Type 2 diabetes mellitus without complications Status: Acute Assessment and Plan: * follow accuchecks * glycemic control Will continue to follow. Subjective Date/time seen: 12/03/21 11:53 Bowel movements are still frequent but appear more formed; working with PT/OT as tolerated; still complaints of LE edema although it does not seem any worse; no other issues/events/concerns overnight or earlier this morning; tolerating oral intake. Exam Narrative: General: WD/WN female in NAD Heart: normal S1 and S2; no rub Lungs: clear to auscultation Abdomen: soft, nontender, nondistended, positive bowel sounds Extremities: no cyanosis or clubbing; trace edema Skin: no rash Objective Data Vital Signs Vital Signs: Vital Signs Temp Pulse Resp BP Pulse Ox 12/03/21 08:25 60 12/03/21 08:24 88 12/03/21 08:00 36.6 C 60 22 H 131/54 L 97 12/03/21 06:00 36.6 C 60 22 H 131/54 L 97 12/02/21 22:00 36.6 C 61 22 H 117/50 L 98 12/02/21 20:00 64 16 98 12/02/21 14:00 37.0 C 64 16 118/44 L 98 Intake/Output Intake/Output: Intake & Output 11/30/21 12/01/21 12/02/21 12/03/21 23:59 23:59 23:59 23:59 Intake Total 1590 1020 660 360 Output Total 800 3 Balance 790 1020 657 360 Meds/Results Medications: Active Medications Generic Name Dose Route Start Last Admin Trade Name Freq PRN Reason Stop Dose Admin Acetaminophen/Codeine Phosphate 1 tab 11/26/21 23:05 Acetaminophen/Codeine (*Crx) 300/30 Mg Tablet PO Q6H PRN Pain Rated 4-6 Amiodarone HCl 200 mg 11/27/21 08:00 12/03/21 08:24 Amiodarone Hcl 200 Mg Tablet PO 200 mg DAILY@0800 CINDY Administration Ampicillin 500 mg 12/01/21 18:00 12/03/21 05:03 Ampicillin Trihydrate 500 Mg Capsule PO 500 mg Q6HR CINDY Administration Apixaban 5 mg 050
--- NOTE | 2021-12-03 11:53 | PM.PNNEP ---
Progress Note: A&P Assessment and Plan (1) Hyponatremia: Code(s): E87.1 - Hypo-osmolality and hyponatremia Status: Acute Assessment and Plan: slow improvement presumably acute suspect initially due to volume depletion given GI symptoms (nausea/vomiting/diarrhea) however, issues with pain, use of narcotics, and use of PPI may be playing a role evaluation to date: TSH elevated but free T4 okay cortisol okay SPEP/serum immunofixation negatve; UPEP/urine immunofixation pending recent urine electrolytes suggest pre-renal azotemia normal saline IVFs did not really improve sodium level on salt tablets, fluid restriction, and low dose lasix will have to be careful that lasix does result in volume depletion follow serial sodium levels goal rate of change in sodium is 4 - 6mmol/L in 24hr period of time (and not exceed 8mmol/L) (2) Clostridium difficile infection: Code(s): A49.8 - Other bacterial infections of unspecified site Status: Acute Assessment and Plan: as noted by testing in ER on oral vancomycin (3) Hypertension: Code(s): I10 - Essential (primary) hypertension Status: Chronic Assessment and Plan: reasonable control at this time follow trend of hemodynamics (4) Diabetes mellitus: Code(s): E11.9 - Type 2 diabetes mellitus without complications Status: Acute Assessment and Plan: follow accuchecks glycemic control Will continue to follow. Subjective Date/time seen: 12/03/21 11:53 Bowel movements are still frequent but appear more formed; working with PT/OT as tolerated; still complaints of LE edema although it does not seem any worse; no other issues/events/concerns overnight or earlier this morning; tolerating oral intake. Exam Narrative: General: WD/WN female in NAD Heart: normal S1 and S2; no rub Lungs: clear to auscultation Abdomen: soft, nontender, nondistended, positive bowel sounds Extremities: no cyanosis or clubbing; trace edema Skin: no rash Objective Data Vital Signs Vital Signs: Vital Signs Temp Pulse Resp BP Pulse Ox 12/03/21 08:25 60 12/03/21 08:24 88 12/03/21 08:00 36.6 C 60 22 H 131/54 L 97 12/03/21 06:00 36.6 C 60 22 H 131/54 L 97 12/02/21 22:00 36.6 C 61 22 H 117/50 L 98 12/02/21 20:00 64 16 98 12/02/21 14:00 37.0 C 64 16 118/44 L 98 Intake/Output Intake/Output: Intake & Output 11/30/21 12/01/21 12/02/21 12/03/21 23:59 23:59 23:59 23:59 Intake Total 1590 1020 660 360 Output Total 800 3 Balance 790 1020 657 360 Meds/Results Medications: Active Medications Generic Name Dose Route Start Last Admin Trade Name Freq PRN Reason Stop Dose Admin Acetaminophen/Codeine Phosphate 1 tab 11/26/21 23:05 Acetaminophen/Codeine (*Crx) 300/30 Mg Tablet PO Q6H PRN Pain Rated 4-6 Amiodarone HCl 200 mg 11/27/21 08:00 12/03/21 08:24 Amiodarone Hcl 200 Mg Tablet PO 200 mg DAILY@0800 CINDY Administration Ampicillin 500 mg 12/01/21 18:00 12/03/21 05:03 Ampicillin Trihydrate 500 Mg Capsule PO 500 mg Q6HR CINDY Administration Apixaban 5 mg 11/26/21 23:40 12/03/21 08:24 Apixaban 5 Mg Tablet PO 5 mg Q12HR CINDY Administration Atorvastatin Calcium 40 mg 11/26/21 23:40 12/02/21 20:51 Atorvastatin 40 Mg Tablet PO 40 mg HS CINDY Administration Baclofen 10 mg 11/27/21 09:00 12/03/21 08:25 Baclofen 10 Mg Tablet PO 10 mg BID CINDY Administration Chlorpheniramine Maleate 4 mg 11/26/21 23:05 12/01/21 09:23 Chlorpheniramine Maleate 4 Mg Tablet PO 4 mg Q4H PRN Administration Allergic Symptoms Dextrose 12.5 gm 11/26/21 14:32 Dextrose 50% 25 Gm/50 Ml Syringe IV PUSH PRN PRN Hypoglycemia Protocol Ezetimibe 10 mg 11/27/21 09:00 12/03/21 08:25 Ezetimibe 10 Mg Tablet PO 10 mg DAILY CINDY Administration Ferrous Sulfate 324 mg 11/30/21 17:00
--- NOTE | 2021-12-03 12:21 | PC.NURSE ---
informed pharmacy that pt is requesting to take medication throughout the day, pt requesting following medication at following times, breakfast 800 Eliquis, Protonix, and baclofen, midmorning 1000 metoprolol and isosorbide mononitrate, and evening eliquis and gabapentin, and HS Zetia, atorvastatin, and amiodarone.
--- NOTE | 2021-12-03 12:47 | P.PNIM_ITS ---
Progress Note: A&P Assessment and Plan (1) Clostridium difficile infection: Code(s): A49.8 - Other bacterial infections of unspecified site Status: Acute Assessment and Plan: Patient presented with diarrhea * C diff PCR positive on 11/26/2021 * May be due to recent antibiotic use following hip replacement * Continue p.o. vancomycin day #8 * Probiotics and banatrol dietary supplement * Monitor volume status closely * WBC trending down. Patient remains afebrile. (2) Hyponatremia: Code(s): E87.1 - Hypo-osmolality and hyponatremia Status: Acute Assessment and Plan: Sodium has been low this admission, no prior labs available for comparison * Appreciate nephrology consultation * Sodium improving at appropriate rate. 130 today. * Continue with sodium chloride tabs 1 g b.i.d. * Fluid restriction diet - 1800 ml daily * Monitor sodium levels closely * TSH slightly elevated with normal T4, cortisol (3) Type 1 diabetes mellitus: Code(s): E10.9 - Type 1 diabetes mellitus without complications Status: Acute Assessment and Plan: Patient reports history of type 1 diabetes for 50+ years * A1c is 6.2 * Continue insulin pump. Patient managing and sugars are well controlled * Continue with accuchecks and hypoglycemic protocol. (4) Hypertension: Code(s): I10 - Essential (primary) hypertension Status: Chronic Assessment and Plan: Blood pressures reviewed and have been running low * Losartan on hold. Continue low dose metoprolol for rate control * Hold baclofen * Orthostatics negative. * Monitor blood pressure trends * Avoid IV fluids due to edema and hyponatremia. Monitor volume status closely. Encourage adequate PO intake. (5) Afib: Code(s): I48.91 - Unspecified atrial fibrillation Status: Acute Assessment and Plan: Rate is controlled * Continue amiodarone 200mg PO daily, Eliquis, and metoprolol 12.5mg PO daily (6) UTI (urinary tract infection): Code(s): N39.0 - Urinary tract infection, site not specified Status: Acute Assessment and Plan: UA was abnormal on presentation * Urine culture with growth of 50-100k Enterococcus and 10-49k Morganella morganii * Continue ampicillin for narrowed treatment of enterococcus. Previously on Vancomycin 11/28-12/01/21. * Received 3 days of IV Ceftriaxone for Morganella. Ceftriaxone discontinued 12/01 given low colony count. (7) Anemia: Code(s): D64.9 - Anemia, unspecified Status: Acute Assessment and Plan: Macrocytic. H&H has remained low during hospitalization but stable * Hemoglobin 7.9 today * B12 is >1000, folate is within normal limits * Iron stores are low. Continue p.o. iron supplementation * Continue to monitor H&H * No evidence of GI bleeding (8) Lower extremity edema: Code(s): R60.0 - Localized edema Status: Acute Assessment and Plan: 2+ lower extremity edema * Bilateral venous Doppler negative for DVT * Elevate extremities * Encourage ambulation * Compression stockings (9) Dysphagia: Code(s): R13.10 - Dysphagia, unspecified Status: Acute Assessment and Plan: Patient endorses intermittent dysphagia * Evaluated by speech therapy on 11/28. * No dietary modifications. She was educated on safe swallow technique (10) Urinary dribbling: Code(s): N39.43 - Post-void dribbling Status: Acute Assessment and Plan:
--- NOTE | 2021-12-03 12:47 | PM.IMPN ---
Progress Note: A&P Assessment and Plan (1) Clostridium difficile infection: Code(s): A49.8 - Other bacterial infections of unspecified site Status: Acute Assessment and Plan: Patient presented with diarrhea C diff PCR positive on 11/26/2021 May be due to recent antibiotic use following hip replacement Continue p.o. vancomycin day #8 Probiotics and banatrol dietary supplement Monitor volume status closely WBC trending down. Patient remains afebrile. (2) Hyponatremia: Code(s): E87.1 - Hypo-osmolality and hyponatremia Status: Acute Assessment and Plan: Sodium has been low this admission, no prior labs available for comparison Appreciate nephrology consultation Sodium improving at appropriate rate. 130 today. Continue with sodium chloride tabs 1 g b.i.d. Fluid restriction diet - 1800 ml daily Monitor sodium levels closely TSH slightly elevated with normal T4, cortisol (3) Type 1 diabetes mellitus: Code(s): E10.9 - Type 1 diabetes mellitus without complications Status: Acute Assessment and Plan: Patient reports history of type 1 diabetes for 50+ years A1c is 6.2 Continue insulin pump. Patient managing and sugars are well controlled Continue with accuchecks and hypoglycemic protocol. (4) Hypertension: Code(s): I10 - Essential (primary) hypertension Status: Chronic Assessment and Plan: Blood pressures reviewed and have been running low Losartan on hold. Continue low dose metoprolol for rate control Hold baclofen Orthostatics negative. Monitor blood pressure trends Avoid IV fluids due to edema and hyponatremia. Monitor volume status closely. Encourage adequate PO intake. (5) Afib: Code(s): I48.91 - Unspecified atrial fibrillation Status: Acute Assessment and Plan: Rate is controlled Continue amiodarone 200mg PO daily, Eliquis, and metoprolol 12.5mg PO daily (6) UTI (urinary tract infection): Code(s): N39.0 - Urinary tract infection, site not specified Status: Acute Assessment and Plan: UA was abnormal on presentation Urine culture with growth of 50-100k Enterococcus and 10-49k Morganella morganii Continue ampicillin for narrowed treatment of enterococcus. Previously on Vancomycin 11/28-12/01/21. Received 3 days of IV Ceftriaxone for Morganella. Ceftriaxone discontinued 12/01 given low colony count. (7) Anemia: Code(s): D64.9 - Anemia, unspecified Status: Acute Assessment and Plan: Macrocytic. H&H has remained low during hospitalization but stable Hemoglobin 7.9 today B12 is >1000, folate is within normal limits Iron stores are low. Continue p.o. iron supplementation Continue to monitor H&H No evidence of GI bleeding (8) Lower extremity edema: Code(s): R60.0 - Localized edema Status: Acute Assessment and Plan: 2+ lower extremity edema Bilateral venous Doppler negative for DVT Elevate extremities Encourage ambulation Compression stockings (9) Dysphagia: Code(s): R13.10 - Dysphagia, unspecified Status: Acute Assessment and Plan: Patient endorses intermittent dysphagia Evaluated by speech therapy on 11/28. No dietary modifications. She was educated on safe swallow technique (10) Urinary dribbling: Code(s): N39.43 - Post-void dribbling Status: Acute Assessment and Plan: Resolved. Patient endorses dribbling and feeling the need to ?push out? urine Monitor urine output Urinating without difficulty today Symptoms may have been due to UTI Subjective Date/time seen: 12/03/21 12:47 Interval history: Date of service: 12/03/2021 Jil Rowan is a 76-year-old female with a history of atrial fibrillation on chronic anticoagulation, type 1 diabetes mellitus, hypertension, hyperlipidemia who is seen in follow-up for C diff colitis and urinary tract infection.
[2021-12-03] MEDS: ATORVASTATIN 40 MG TABLET PO (20:37)
[2021-12-04] MEDS: VANCOMYCIN ORAL 125 MG/2.5 ML SYRUP PO ×3 (00:47→11:11)
[2021-12-04] MEDS: AMPICILLIN TRIHYDRATE 500 MG CAPSULE PO ×3 (00:48→11:11)
[2021-12-04 05:00] VITALS: BP 128/86; PULSE 61; RESP 18; TEMP 36.6; O2SAT 96
[2021-12-04 06:47] LABS: Hematocrit 25.5 % (37.0-47.0); Hemoglobin 8.1 g/dL (12.0-15.0); Mean Corpuscular HGB Conc 31.8 g/dl (32-36); Mean Corpuscular Hemoglobin 33.2 pg (26-34); Mean Corpuscular Volume 104.5 fl (80-100); Platelet Count Result 413 k/mm3 (150-375); Red Blood Count 2.44 M/mm3 (4.2-5.4); Red Cell Distribution Width 14.6 % (11.5-14.5); White Blood Count 10.4 K/mm3 (4.5-10.0)
[2021-12-04 06:57] LABS: Anion Gap 0 mmol/L (8-16); Blood Urea Nitrogen 20 mg/dL (7-17); Calcium 7.7 mg/dL (8.4-10.2); Carbon Dioxide 34 mmol/L (22-30); Chloride 96 mmol/L (98-107); Estimated CRCL calculation 29 ml/min; Estimated Glomerular Filt Rate 40; Glucose 104 mg/dL (65-110); Potassium 3.6 mmol/L (3.4-5.0); Sodium 130 mmol/L (137-145)
[2021-12-04 07:56] VITALS: BP 122/56; BP 134/63; BP 136/63
[2021-12-04 08:00] VITALS: PULSE 61; RESP 18; O2SAT 96
[2021-12-04] MEDS: SODIUM CHLORIDE 1 GM TABLET PO (08:03)
[2021-12-04] MEDS: APIXABAN 5 MG TABLET PO (08:03)
[2021-12-04] MEDS: FERROUS SULFATE 324 MG TABLET PO (08:03)
[2021-12-04] MEDS: FUROSEMIDE 10 MG TABLET PO (08:03)
[2021-12-04] MEDS: PANTOPRAZOLE 40 MG TABLET PO (08:03)
[2021-12-04] MEDS: SACCHAROMYCES BOULARDII 250 MG CAPSULE PO (08:03)
--- NOTE | 2021-12-04 10:18 | PC.NURSE ---
pt reports one formed stool since 6a today, and 4 bm yesterday
[2021-12-04 11:13] VITALS: PULSE 60
[2021-12-04] MEDS: ISOSORBIDE MONONITRATE 30 MG TAB.ER.24H PO (11:13)
[2021-12-04] MEDS: METOPROLOL SUCCINATE EXT REL 12.5 MG TABCR PO (11:13)
--- NOTE | 2021-12-04 11:43 | P.PNNP_ITS ---
Progress Note: A&P Assessment and Plan (1) Hyponatremia: Code(s): E87.1 - Hypo-osmolality and hyponatremia Status: Acute Assessment and Plan: * hyponatremia. * We have no labs from before this admission. We do not have a sodium baseline. * TSH and cortisol are okay. * SPEP negative. UPEP pending * etiology is unclear. Possibly related to the C diff. Urine lytes did show pre renal azotemia as pointed out by Dr. Henderson. She was on PPI eyes before. * Chest x-ray unremarkable. 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 * No history of cancer * labs okay. * Consider changing pantoprazole to famotidine? * on salt tablets, fluid restriction of 1800, and low dose lasix * will have to be careful that lasix does result in volume depletion * This sodium level 130 and stable. (2) Clostridium difficile infection: Code(s): A49.8 - Other bacterial infections of unspecified site Status: Acute Assessment and Plan: * as noted by testing in ER * on oral vancomycin (3) Hypertension: Code(s): I10 - Essential (primary) hypertension Status: Chronic Assessment and Plan: * reasonable control at this time * follow trend of hemodynamics (4) Diabetes mellitus: Code(s): E11.9 - Type 2 diabetes mellitus without complications Status: Acute Assessment and Plan: * follow accuchecks * glycemic control Will continue to follow. Subjective Date/time seen: 12/04/21 11:43 Interval history: Patient feels okay. She has some swelling now. She did not have any when she came in. No chest pain or shortness of breath Exam Narrative: General: WD/WN female in NAD Heart: normal S1 and S2; no rub or gallop Lungs: clear to auscultation Abdomen: soft, nontender, nondistended, positive bowel sounds Extremities: no cyanosis or clubbing; trace edema Skin: no rash or subcu nodules Objective Data Vital Signs Vital Signs: Vital Signs - 24 hr 12/03/21 15:00 12/03/21 21:26 12/03/21 23:30 Temperature 36.9 C 36.6 C Pulse Rate 60 67 Respiratory Rate 16 18 Blood Pressure 108/50 L 102/68 111/46 L Pulse Oximetry 95 97 12/03/21 23:34 12/03/21 23:36 12/04/21 05:00 Temperature 36.6 C Pulse Rate 61 Respiratory Rate 18 Blood Pressure 104/57 L 93/36 L 128/86 Pulse Oximetry 96 12/04/21 07:56 12/04/21 08:00 12/04/21 11:13 Temperature Pulse Rate 61 60 Respiratory Rate 18 Blood Pressure 122/56 L Pulse Oximetry 96 Intake/Output Intake/Output: Intake & Output 12/01/21 12/02/21 12/03/21 12/04/21 23:59 23:59 23:59 23:59 Intake Total 1020 660 960 440 Output Total 3 Balance 1020 657 960 440 Meds/Results Medications: Active Medications Generic Name Dose Route Start Last Admin Trade Name Freq PRN Reason Stop Dose Admin Acetaminophen/Codeine Phosphate 1 tab 11/26/21 23:05 Acetaminophen/Codeine (*Crx) 300/30 Mg Tablet PO Q6H PRN Pain Rated 4-6 Amiodarone HCl 200 mg 12/04/21 21:00 Amiodarone Hcl 200 Mg Tablet PO HS CINDY Ampicillin 500 mg 12/01/21 18:00 12/04/21 11:
--- NOTE | 2021-12-04 11:43 | PM.PNNEP ---
Progress Note: A&P Assessment and Plan (1) Hyponatremia: Code(s): E87.1 - Hypo-osmolality and hyponatremia Status: Acute Assessment and Plan: hyponatremia. We have no labs from before this admission. We do not have a sodium baseline. TSH and cortisol are okay. SPEP negative. UPEP pending etiology is unclear. Possibly related to the C diff. Urine lytes did show pre renal azotemia as pointed out by Dr. Henderson. She was on PPI eyes before. Chest x-ray unremarkable. 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 No history of cancer labs okay. Consider changing pantoprazole to famotidine? on salt tablets, fluid restriction of 1800, and low dose lasix will have to be careful that lasix does result in volume depletion This sodium level 130 and stable. (2) Clostridium difficile infection: Code(s): A49.8 - Other bacterial infections of unspecified site Status: Acute Assessment and Plan: as noted by testing in ER on oral vancomycin (3) Hypertension: Code(s): I10 - Essential (primary) hypertension Status: Chronic Assessment and Plan: reasonable control at this time follow trend of hemodynamics (4) Diabetes mellitus: Code(s): E11.9 - Type 2 diabetes mellitus without complications Status: Acute Assessment and Plan: follow accuchecks glycemic control Will continue to follow. Subjective Date/time seen: 12/04/21 11:43 Interval history: Patient feels okay. She has some swelling now. She did not have any when she came in. No chest pain or shortness of breath Exam Narrative: General: WD/WN female in NAD Heart: normal S1 and S2; no rub or gallop Lungs: clear to auscultation Abdomen: soft, nontender, nondistended, positive bowel sounds Extremities: no cyanosis or clubbing; trace edema Skin: no rash or subcu nodules Objective Data Vital Signs Vital Signs: Vital Signs - 24 hr 12/03/21 15:00 12/03/21 21:26 12/03/21 23:30 Temperature 36.9 C 36.6 C Pulse Rate 60 67 Respiratory Rate 16 18 Blood Pressure 108/50 L 102/68 111/46 L Pulse Oximetry 95 97 12/03/21 23:34 12/03/21 23:36 12/04/21 05:00 Temperature 36.6 C Pulse Rate 61 Respiratory Rate 18 Blood Pressure 104/57 L 93/36 L 128/86 Pulse Oximetry 96 12/04/21 07:56 12/04/21 08:00 12/04/21 11:13 Temperature Pulse Rate 61 60 Respiratory Rate 18 Blood Pressure 122/56 L Pulse Oximetry 96 Intake/Output Intake/Output: Intake & Output 12/01/21 12/02/21 12/03/21 12/04/21 23:59 23:59 23:59 23:59 Intake Total 1020 660 960 440 Output Total 3 Balance 1020 657 960 440 Meds/Results Medications: Active Medications Generic Name Dose Route Start Last Admin Trade Name Freq PRN Reason Stop Dose Admin Acetaminophen/Codeine Phosphate 1 tab 11/26/21 23:05 Acetaminophen/Codeine (*Crx) 300/30 Mg Tablet PO Q6H PRN Pain Rated 4-6 Amiodarone HCl 200 mg 12/04/21 21:00 Amiodarone Hcl 200 Mg Tablet PO HS CINDY Ampicillin 500 mg 12/01/21 18:00 12/04/21 11:11 Ampicillin Trihydrate 500 Mg Capsule PO 500 mg Q6HR CINDY Administration Apixaban 5 mg 12/03/21 17:00 12/04/21 08:03 Apixaban 5 Mg Tablet PO 5 mg 0800,1700 CINDY Administration Atorvastatin Calcium 40 mg 11/26/21 23:40 12/03/21 20:37 Atorvastatin 40 Mg Tablet PO 40 mg HS CINDY Administration Baclofen 10 mg 12/03/21 17:00 Baclofen 10 Mg Tablet PO 0800,1700 CINDY Chlorpheniramine Maleate 4 mg 11/26/21 23:05 12/01/21 09:23 Chlorpheniramine Maleate 4 Mg Tablet PO 4 mg Q4H PRN Administration Allergic Symptoms Dextrose 12.5 gm 11/26/21 14:32 Dextrose 50% 25 Gm/50 Ml Syringe IV PUSH PRN PRN Hypoglycemia Protocol Ezetimibe 10 mg 12/04/21 21:00 Ezetimibe 10 Mg Tablet PO HS CINDY Ferrous Sulfate 324 mg 11/30/21 17:00 12/04/21 08:03 Ferrous Sulfate 324 Mg
--- NOTE | 2021-12-04 13:14 | PC.NURSE ---
per care associate pt accepted at [facility] for rehab. [phone] phone number for report, awaiting discharge orders for report.
[2021-12-04 14:00] VITALS: BP 117/56; PULSE 64; RESP 16; TEMP 36.6; O2SAT 99
--- NOTE | 2021-12-04 14:25 | P.DS_ITS ---
DS: Admitting Diagnosis Discharge Date 12/04/2021 Admitting Diagnosis C. difficile colitis DS: Discharge Diagnosis Discharge Diagnosis (1) Clostridium difficile infection: Code(s): A49.8 - Other bacterial infections of unspecified site Status: Acute Assessment and Plan: Patient presented with diarrhea * C diff PCR positive on 11/26/2021 * May be due to recent antibiotic use following hip replacement * Managed with p.o. vancomycin which was continued on discharge to complete a total of 10 days * Probiotics and banatrol dietary supplement * Leukocytosis improved. Patient remained afebrile. Stool frequency lessened and became more formed (2) Hyponatremia: Code(s): E87.1 - Hypo-osmolality and hyponatremia Status: Acute Assessment and Plan: Sodium was low during admission, no prior labs available for comparison * Managed by Nephrology * Sodium improved at appropriate rate and remained stable at 130 prior to discharge * Continue with sodium chloride tabs 1 g b.i.d. * Fluid restriction diet - 1800 ml daily * Repeat sodium in 1 week * Furosemide 20 mg daily * TSH slightly elevated with normal T4, cortisol (3) Type 1 diabetes mellitus: Code(s): E10.9 - Type 1 diabetes mellitus without complications Status: Acute Assessment and Plan: Patient reports history of type 1 diabetes for 50+ years * A1c is 6.2 * Patient manage her insulin pump during admission and sugars were well cont rolled (4) Hypertension: Code(s): I10 - Essential (primary) hypertension Status: Chronic Assessment and Plan: Blood pressures reviewed and were running low * Losartan was held. Continue low dose metoprolol for rate control * Orthostatics negative. * Continue to monitor blood pressures at facility and record for review by PCP (5) Afib: Code(s): I48.91 - Unspecified atrial fibrillation Status: Acute Assessment and Plan: Rate remained controlled * Continue amiodarone 200mg PO daily, Eliquis, and metoprolol 12.5mg PO daily (6) UTI (urinary tract infection): Code(s): N39.0 - Urinary tract infection, site not specified Status: Acute Assessment and Plan: UA was abnormal on presentation * Urine culture with growth of 50-100k Enterococcus and 10-49k Morganella morganii * She received IV vancomycin for Enterococcus UTI which was changed to ampicillin for narrowed coverage. She completed a total of 7 days of antibiotic therapy * Received 3 days of IV Ceftriaxone for Morganella. Ceftriaxone discontinued 12/01 given low colony count. (7) Anemia: Code(s): D64.9 - Anemia, unspecified Status: Acute Assessment and Plan: Macrocytic. H&H remained low during hospitalization but stable * B12 is >1000, folate is within normal limits * Iron stores low. Started on p.o. iron supplementation * No evidence of GI bleeding (8) Lower extremity edema: Code(s): R60.0 - Localized edema Status: Acute Assessment and Plan: 2+ lower extremity edema * Bilateral venous Doppler negative for DVT * Elevate extremities * Encourage ambulation * Compression stockings * Continue furosemide 20 mg daily DS: Summary Hospital Course Hospital Course: Date of admission: 11/26/2021 Date of discharge: 12/04/2021 Jil Rowan is a 76-year-old female with a history of atrial fibrillation on chronic anticoagulation, type 1 diabetes mellitus, hypertension, h
--- NOTE | 2021-12-04 14:25 | PM.DS ---
DS: Admitting Diagnosis Discharge Date 12/04/2021 Admitting Diagnosis C. difficile colitis DS: Discharge Diagnosis Discharge Diagnosis (1) Clostridium difficile infection: Code(s): A49.8 - Other bacterial infections of unspecified site Status: Acute Assessment and Plan: Patient presented with diarrhea C diff PCR positive on 11/26/2021 May be due to recent antibiotic use following hip replacement Managed with p.o. vancomycin which was continued on discharge to complete a total of 10 days Probiotics and banatrol dietary supplement Leukocytosis improved. Patient remained afebrile. Stool frequency lessened and became more formed (2) Hyponatremia: Code(s): E87.1 - Hypo-osmolality and hyponatremia Status: Acute Assessment and Plan: Sodium was low during admission, no prior labs available for comparison Managed by Nephrology Sodium improved at appropriate rate and remained stable at 130 prior to discharge Continue with sodium chloride tabs 1 g b.i.d. Fluid restriction diet - 1800 ml daily Repeat sodium in 1 week Furosemide 20 mg daily TSH slightly elevated with normal T4, cortisol (3) Type 1 diabetes mellitus: Code(s): E10.9 - Type 1 diabetes mellitus without complications Status: Acute Assessment and Plan: Patient reports history of type 1 diabetes for 50+ years A1c is 6.2 Patient manage her insulin pump during admission and sugars were well controlled (4) Hypertension: Code(s): I10 - Essential (primary) hypertension Status: Chronic Assessment and Plan: Blood pressures reviewed and were running low Losartan was held. Continue low dose metoprolol for rate control Orthostatics negative. Continue to monitor blood pressures at facility and record for review by PCP (5) Afib: Code(s): I48.91 - Unspecified atrial fibrillation Status: Acute Assessment and Plan: Rate remained controlled Continue amiodarone 200mg PO daily, Eliquis, and metoprolol 12.5mg PO daily (6) UTI (urinary tract infection): Code(s): N39.0 - Urinary tract infection, site not specified Status: Acute Assessment and Plan: UA was abnormal on presentation Urine culture with growth of 50-100k Enterococcus and 10-49k Morganella morganii She received IV vancomycin for Enterococcus UTI which was changed to ampicillin for narrowed coverage. She completed a total of 7 days of antibiotic therapy Received 3 days of IV Ceftriaxone for Morganella. Ceftriaxone discontinued 12/01 given low colony count. (7) Anemia: Code(s): D64.9 - Anemia, unspecified Status: Acute Assessment and Plan: Macrocytic. H&H remained low during hospitalization but stable B12 is >1000, folate is within normal limits Iron stores low. Started on p.o. iron supplementation No evidence of GI bleeding (8) Lower extremity edema: Code(s): R60.0 - Localized edema Status: Acute Assessment and Plan: 2+ lower extremity edema Bilateral venous Doppler negative for DVT Elevate extremities Encourage ambulation Compression stockings Continue furosemide 20 mg daily DS: Summary Hospital Course Hospital Course: Date of admission: 11/26/2021 Date of discharge: 12/04/2021 Jil Rowan is a 76-year-old female with a history of atrial fibrillation on chronic anticoagulation, type 1 diabetes mellitus, hypertension, hyperlipidemia who presented to the emergency department on 11/26/2021 with complaints of diarrhea ongoing for 2 days. On presentation to the ED, she was found to have mild leukocytosis, she was anemic, C diff PCR was positive. She was admitted to the hospitalist service for further evaluation management and was seen in consultation by nephrology. Please see above for further details. She was treated with antibiotics for C diff with improvement in stool patterns. She was able to tolerate her diet
--- NOTE | 2021-12-04 14:26 | PC.NURSE ---
Report given to Sunni at [facility]. Pt to family to transport to facility.
[2021-12-04 14:29] LABS: EDCOVIDSCREEN Negative (Negative)
== END 2021-12-04 15:00 | DRG 372 ==
LOC: ANHED 11:47 → ANH3MEDSUR 12:28
PROVIDERS: Internal Medicine Nephrology; Nurse Practitioner; Nurse Practitioner Adult Health; Physician Assistant; Admitting Provider Internal Medicine; Emergency Provider Nurse Practitioner Family; Visit Provider Student in an Organized Health Care Education/Training Program
DX: A04.72 Enterocolitis due to Clostridium difficile, not specified as recurrent (principal); E87.1 Hypo-osmolality and hyponatremia; N39.0 Urinary tract infection, site not specified; B96.89 Other specified bacterial agents as the cause of diseases classified elsewhere; B95.2 Enterococcus as the cause of diseases classified elsewhere; Z20.822 Contact with and (suspected) exposure to COVID-19; I10 Essential (primary) hypertension; E78.5 Hyperlipidemia, unspecified; I48.91 Unspecified atrial fibrillation; E86.0 Dehydration; D50.9 Iron deficiency anemia, unspecified; E10.9 Type 1 diabetes mellitus without complications; Z96.41 Presence of insulin pump (external) (internal); Z96.642 Presence of left artificial hip joint; R13.10 Dysphagia, unspecified; N39.43 Post-void dribbling; R60.0 Localized edema
CPT/HCPCS: 36415; 71046; 74176; 76700; 80048; 80053; 80202; 81001; 81003; 81050; 82040; 82436; 82533; 82570; 82607; 82728; 82746; 82948; 83036; 83540; 83550; 83605; 83615; 83735; 83880; 83930; 83935; 84155; 84156; 84165; 84295; 84300; 84439; 84443; 84466; 84480; 85025; 85027; 86334; 87077; 87086; 87088; 87186; 87426; 87493; 87804; 92611; 93970; 96361; 96365; 96367; 96374; 96375; 96376; 97110; 97116; 97161; 97165; 97530; 97535; 99284; 99285; A9270; C9803; G0378; J0131; J0610; J0696; J1170; J1815; J1940; J2405; J2765; J3370; J3475; J7030; J7040; U0003; U0005